=== PATIENT | female | born 1945 | race Caucasian/White ===

== ENCOUNTER 2017-01-15 07:39 | Day surgery (SDC) | payer MEDICARE, BC ==
[2017-01-15] MEDS ORDERED: Lactated Ringers 1,000 ML IV SCH (07:45)
[2017-01-15] MEDS ORDERED: Propofol 200 MG/20 ML SDV IV ONE (09:00)
[2017-01-15] MEDS ORDERED: Midazolam 1 MG/ML 2 ML SDV IV ONE (09:00)
[2017-01-15] MEDS ORDERED: Lidocaine 2% 100 MG/5 ML Syringe IVPUSH ONE (09:00)
--- NOTE | 2017-01-15 09:44 | PCM.OPNOTE ---
- General Post-Op/Procedure Note Date of Surgery/Procedure: 01/15/17 Operative Procedure(s): egd and c scope Findings: hiatal hernia, esophagitis gastritis diverticulosis internal hemorrhoids Pre Op Diagnosis: Fe def anemia Post-Op Diagnosis: hiatal hernia, esophagitis. gastritis. diverticulosis. internal hemorrhoids Anesthesia Technique: [facility] Primary Surgeon: Buck Laboy Anesthesia Provider: Elidia Harrison Pathology: stomach and distal esophagus Complications: None Condition: Good Free Text/Narrative:: see dictation [id number]
[2017-01-15 10:19] VITALS: BP 141/81
--- NOTE | 2017-01-15 15:28 | OR ---
DATE OF OPERATION: 01/15/2017 SURGEON: Buck Laboy MD PROCEDURE PERFORMED: Esophagogastroduodenoscopy with cold forceps biopsy and colonoscopy. PREOPERATIVE DIAGNOSIS: Iron deficiency anemia. POSTOPERATIVE DIAGNOSIS: Gastritis, hiatal hernia with esophagitis, sigmoid diverticulosis, and internal hemorrhoids. INDICATIONS FOR PROCEDURE: This is a 71-year-old white female, who is referred for iron deficiency anemia. She essentially has no GI complaints but she was offered and accepted an upper and lower endoscopy to rule out possible GI etiology for her anemia. DESCRIPTION OF PROCEDURE: After an excellent IV sedation was administered, the bite block was inserted. The flexible endoscope was passed without difficulty down the patient's esophagus into the stomach. The stomach was insufflated. The scope was passed through the pylorus to the second portion of duodenum and slowly withdrawn. The following findings were noted. Duodenum was unremarkable. Stomach demonstrated a hiatal hernia with approximately 1/3rd of the stomach in the chest. Marked gastritis, possible gastropathy the was noted in the area of the antrum and biopsies were taken. Distal esophagus demonstrated evidence suggestive of reflux esophagitis and this was biopsied as well. The stomach was deflated and the scope was removed. Our attention was then turned to the colon. Digital rectal exam was performed. No marked abnormality was noted. Flexible colonoscope was inserted and advanced to the cecum without difficulty. The following findings were noted. Ascending colon, unremarkable. Transverse colon, unremarkable. Descending colon, unremarkable. Sigmoid, mild diverticulosis. Rectum and anus unremarkable, except for some internal hemorrhoids which were noted on retroflex of the scope. The colon was deflated as the scope was removed. The patient tolerated the procedure well and was taken to recovery room in good condition. /[id number] /MODL
== END 2017-01-15 10:39 | disposition home or self-care (01) ==
LOC: FB.SDS 07:39
PROVIDERS: ATTEND Surgery
DX: K29.50 Unspecified chronic gastritis without bleeding (principal); K20.9 Esophagitis, unspecified; K44.9 Diaphragmatic hernia without obstruction or gangrene; K57.30 Diverticulosis of large intestine without perforation or abscess without bleeding; K64.8 Other hemorrhoids; F41.1 Generalized anxiety disorder; F33.0 Major depressive disorder, recurrent, mild; G47.33 Obstructive sleep apnea (adult) (pediatric); I10 Essential (primary) hypertension; Z88.8 Allergy status to other drugs, medicaments and biological substances; Z79.01 Long term (current) use of anticoagulants; Z79.899 Other long term (current) drug therapy; Z98.890 Other specified postprocedural states; Z87.891 Personal history of nicotine dependence
CPT/HCPCS: 00740; 43239; 45378; 88305; 88313; J2250; J2704; J7120

== ENCOUNTER 2018-10-20 13:28 | Emergency (ER) | payer MEDICARE, BC ==
[2018-10-20] MEDS ORDERED: Sodium Chloride 0.9% 10 ML Syringe FLUSH PRN (14:14)
--- NOTE | 2018-10-20 14:39 | EDM.PDOC ---
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 She states these are the symptoms that she has had in the past when she has had her pulmonary emboli. She also reports that 2 weeks ago she ran out of her Coumadin for 4 days and since that time she has been to get her INR back in the therapeutic range and it has consistently been subtherapeutic during this time. She has had no chest pain. She's had no palpitations. She's had no fever. She's had bilateral knee pain but this is chronic. She's had no leg swelling. She reports that the pain in her knee is about 6/10 on her right and a 3/10 on her left that this is chronic. The pain is a sharp and aching pain. She has had no hemoptysis. No nausea. No vomiting. She does feel very tired and fatigued. There are no other associated signs or symptoms. There are no other modifying factors. 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 - Related Data Allergies Allergy/AdvReac Type Severity Reaction Status Date / Time morphine AdvReac Vomiting Unverified 10/20/18 16:58 Home Meds: Home Meds ALPRAZolam [Xanax] 1 mg PO BEDTIME PRN 08/15/14 [History] Escitalopram [Lexapro] 10 mg PO DAILY 08/15/14 [History] Losartan/Hydrochlorothiazide [Hyzaar 50-12.5 Tablet] 1 tab PO DAILY 08/15/14 [ History] Acetaminophen [Pain Relief Extra Strength] 1,000 mg PO Q8H PRN 01/14/17 [History ] Ferrous Sulfate 324 mg PO DAILY 01/14/17 [History] Melatonin 5 mg PO BEDTIME 01/14/17 [History] Enoxaparin Sodium [Lovenox] 100 mg SQ BID #14 ml 10/20/18 [Rx] Warfarin Sodium 2.5 mg DAILY 10/20/18 [History] Past Medical History HEENT History: Reports: Cataract, Impaired Vision Cardiovascular History: Reports: Blood Clots/VTE/DVT, Hypertension Respiratory History: Reports: PE, Sleep Apnea, SOB Gastrointestinal History: Reports: Colon Polyp, Gastritis Genitourinary History: Reports: Renal Calculus Other Genitourinary History: had stents when had kidney stone in Jul 2018 VINE PRUNER History: Reports: Other (See Below) Other VINE PRUNER History: Musculoskeletal History: Reports: Osteoarthritis Neurological History: Reports: Concussion, Head Trauma Psychiatric History: Reports: Anxiety, Depression Endocrine/Metabolic History: Reports: Obesity/BMI 30+ Hematologic History: Reports: Anemia, Anticoagulation Therapy (On Coumadin), Blood Transfusion(s) - Infectious Disease History Infectious Disease History: Reports: Chicken Pox, Measles, Mumps - Past Surgical History GI Surgical History: Reports: Colonoscopy, EGD Female Surgical History: Reports: D&C, Endometrial Ablation, Lithotripsy/ESWL , Other (See Below) Other Female Surgeries/Procedures: hysteroscopy et polypectomy Musculoskeletal Surgical History: Reports: Arthroscopic Knee Other Musculoskeletal Surgeries/Procedures:: R knee scope Social & Family History - Tobacco Use Smoking Status *Q: Former Smoker (Quit in the 1960s.) Years of Tobacco use: 5 Used Tobacco, but Quit: Yes Month/Year Tobacco Last Used: jun - Caffeine Use Caffeine Use: Reports: Coffee - Alcohol Use Alcohol Use History: Yes Alcohol Use Frequency: Rarely - Living Situation & Occupation Living situation: Reports: ED ROS GENERAL - Review of Systems Review Of Systems: See Below Constitutional: Reports: Fatigue HEENT: Reports: No Symptoms Respiratory: Reports: Shortness of Breath, Cough (Particularly at bedtime) Cardiovascular: Reports: No Symptoms Endocrine: Reports: Fatigue GI/Abdominal: Reports: No Symptoms : Reports: No Symptoms Musculoskeletal: Reports: Joint Pain (Bilateral knee pain, chronic) Skin: Reports: No Symptoms Neurological: Reports: No Symptoms Hematologic/Lymphatic: Reports: Other (Chronically anticoagulated with Coumadin but has been subtherapeutic for about the past 2 weeks.) Immunologic: Reports: No Symptoms ED EXAM, GENERAL - Physical Exam Exam: See Below Exam Limited By: No Limitations General Appearance: Alert, No Apparent Distress, Obese Eye Exam: Bilateral Eye: EOMI, Normal Inspection, PERRL Ears: Normal External Exam, Hearing Grossly Normal Nose: Normal Inspection, Normal Mucosa Throat/Mouth: Normal Inspection, Normal Voice, No Airway Compromise Head: Atraumatic, Normocephalic Neck: Normal Inspection, Supple, Non-Tender, Full Range of Motion Respiratory/Chest: No Respiratory Distress, Lungs Clear, Normal Breath Sounds, No Accessory Muscle Use Cardiovascular: Normal Peripheral Pulses, Regular Rate, Rhythm, No JVD Peripheral Pulses: 2+: Radial (L), Radial (R) GI/Abdominal: Normal Bowel Sounds, Soft, Non-Tender, No Mass Back Exam: Normal Inspection Extremities: Normal Inspection, Normal Range of Motion, Non-Tender Neurological: Alert, CN II-XII Intact, Normal Cognition, No Motor/Sensory Deficits Skin Exam: Warm, Dry, Intact, Normal Color, No Rash EKG INTERPRETATION EKG Date: 10/20/18 Time: 14:38 Rhythm: NSR Rate (Beats/Min): 68 [place]: Normal P-Wave: Present QRS: Normal ST-T: Normal QT: Prolonged (Slight) Comparison: NA - No Prior EKG EKG Interpretation Comments: Normal sinus rhythm with a rate of 68. There was a normal axis. Slightly prolonged QTC. There were some PACs. No current of injury. No old EKG for comparison. Course - Vital Signs Last Recorded V/S: Last Vital Signs Temp 37.2 C 10/20/18 13:31 Pulse 73 10/20/18 13:31 Resp 20 10/20/18 13:31 BP 181/89 H 10/20/18 13:31 Pulse Ox 100 10/20/18 13:31 - Orders/Labs/Meds Orders: Active Orders 24 hr Category Date Time Status EKG Documentation Completion [RC] ASDIRECTED Care 10/20/18 14:14 Active Ang Chest [CT] Stat Exams 10/20/18 14:44 Taken Sodium Chloride 0.9% [Saline Flush] Med 10/20/18 14:14 Active 10 ml FLUSH ASDIRECTED PRN Peripheral IV Insertion Adult [OM.PC] Routine Oth 10/20/18 14:14 Ordered EKG 12 Lead [EK] Routine Ther 10/20/18 14:14 Ordered Medication Orders Sodium Chloride (Saline Flush) 10 ml FLUSH ASDIRECTED PRN PRN Reason: Keep Vein Open Labs: Laboratory Tests 10/20/18 10/20/18 10/20/18 Range/Units 13:40 13:40 13:40 WBC 8.0 (4.5-12.0) X10-3/uL RBC 4.31 (3.23-5.20) x10(6)uL Hgb 12.8 (11.5-15.5) g/dL Hct 38.3 (30.0-51.3) % MCV 89.0 (80-96) fL MCH 29.7 (27.7-33.6) pg MCHC 33.4 (32.2-35.4) g/dL RDW 13.6 (11.5-15.5) % Plt Count 260 (125-369) X10(3)uL MPV 7.7 (7.4-10.4) fL Neut % (Auto) 71.7 (46-82) % Lymph % (Auto) 20.1 (13-37) % [place] % (Auto) 6.8 (4-12) % Eos % (Auto) 1 (1.0-5.0) % Baso % (Auto) 0 (0-2) % Neut # (Auto) 5.8 (1.6-8.3) # Lymph # (Auto) 1.6 (0.6-5.0) # [place] # (Auto) 0.5 (0.0-1.3) # Eos # (Auto) 0.1 (0.0-0.8) # Baso # (Auto) 0.0 (0.0-0.2) # PT 10.4 (8.7-11.1) INR 1.07 (0.89-1.13) Sodium 139 (135-145) mmol/L Potassium 3.5 (3.5-5.3) mmol/L Chloride 104 (100-110) mmol/L Carbon Dioxide 28 (21-32) mmol/L BUN 11 (7-18) mg/dL Creatinine 0.9 (0.55-1.02) mg/dL Est Cr Clr Drug Dosing 39.39 mL/min Estimated GFR (MDRD) > 60 (>60) BUN/Creatinine Ratio 12.2 (9-20) Glucose 90 (80-116) mg/dL Calcium 8.7 (8.6-10.2) mg/dL Total Bilirubin 0.4 (0.1-1.3) mg/dL AST 14 (5-25) IU/L ALT 18 (12-36) U/L Alkaline Phosphatase 118 H (56-112) IU/L Troponin I (<0.017-0.056) ng/mL NT-Pro-B Natriuret Pep (<=125) pg/mL Total Protein 7.3 (6.0-8.0) g/dL Albumin 3.2 (3.2-4.6) g/dL Globulin 4.1 g/dL Albumin/Globulin Ratio 0.8 04/25/19 Range/Units 13:40 WBC (4.5-12.0) X10-3/uL RBC (3.23-5.20) x10(6)uL Hgb (11.5-15.5) g/dL Hct (30.0-51.3) % MCV (80-96) fL MCH (27.7-33.6) pg MCHC (32.2-35.4) g/dL RDW (11.5-15.5) % Plt Count (125-369) X10(3)uL MPV (7.4-10.4) fL Neut % (Auto) (46-82) % Lymph % (Auto) (13-37) % [place] % (Auto) (4-12) % Eos % (Auto) (1.0-5.0) % Baso % (Auto) (0-2) % Neut # (Auto) (1.6-8.3) # Lymph # (Auto) (0.6-5.0) # [place] # (Auto) (0.0-1.3) # Eos # (Auto) (0.0-0.8) # Baso # (Auto) (0.0-0.2) # PT (8.7-11.1) INR (0.89-1.13) Sodium (135-145) mmol/L Potassium (3.5-5.3) mmol/L Chloride (100-110) mmol/L Carbon Dioxide (21-32) mmol/L BUN (7-18) mg/dL Creatinine (0.55-1.02) mg/dL Est Cr Clr Drug Dosing mL/min Estimated GFR (MDRD) (>60) BUN/Creatinine Ratio (9-20) Glucose (80-116) mg/dL Calcium (8.6-10.2) mg/dL Total Bilirubin (0.1-1.3) mg/dL AST (5-25) IU/L ALT (12-36) U/L Alkaline Phosphatase (56-112) IU/L Troponin I < 0.017 L (<0.017-0.056) ng/mL NT-Pro-B Natriuret Pep 161 H (<=125) pg/mL Total Protein (6.0-8.0) g/dL Albumin (3.2-4.6) g/dL Globulin g/dL Albumin/Globulin Ratio Meds: Medications Generic Name Dose Route Start Last Admin Trade Name Freq PRN Reason Stop Dose Admin Sodium Chloride 10 ml 10/20/18 14:14 Saline Flush FLUSH ASDIRECTED PRN Keep Vein Open Discontinued Medications Generic Name Dose Route Start Last Admin Trade Name Freq PRN Reason Stop Dose Admin Enoxaparin Sodium 100 mg 10/20/18 17:25 Lovenox SUBCUT 10/20/18 17:26 ONETIME ONE Sodium Chloride 500 mls @ 999 mls/hr 10/20/18 14:43 10/20/18 16:32 Normal Saline IV 10/20/18 15:13 Not Given .BOLUS ONE Sodium Chloride 1,000 mls @ 999 mls/hr 10/20/18 16:20 10/20/18 16:20 Normal Saline IV 10/20/18 17:20 999 mls/hr .BOLUS ONE Administration Iopamidol 100 ml 10/20/18 15:09 10/20/18 15:15 Isovue-370 (76%) IV 10/20/18 15:10 85 ml ONETIME ONE Administration - Radiology Interpretation Free Text/Narrative:: CT angios of chest showed evidence of distal PEs on the right that may be chronic per the radiologist. He could not definitely determine chronic versus acute PE. - Re-Assessments/Exams Free Text/Narrative Re-Assessment/Exam: 10/20/18 17:29: The patient has had recurrent PEs and is on Coumadin for chronic anticoagulation. She has been subtherapeutic for about 2 weeks now and is supposed to be on lifelong anticoagulation for these recurrent PEs. The CT scan of the chest show evidence of PEs in the right distal long that were either chronic or acute. Nonetheless, she will need additional anticoagulation. I discussed the patient's case with Dr. Pal, merchandising consultant for Dr. Carrasco, and he recommended Eliquis as single therapy or the patient could continue on Coumadin with Lovenox bridging (as she has done in the past). I discussed these options with the patient as well as the findings on her CT, her EKG and her blood tests. Besides the evidence of PEs, all of the other tests were reassuringly normal. Specifically, she has no evidence of pneumonia, heart failure or cardiac issue this time. She would be in favor of continuing on Coumadin and taking the Lovenox as a bridge until her INR to become therapeutic again. Therefore, the patient will be given Lovenox 100 mg subcutaneous today and I will give her a prescription for 1 week's supply of the Lovenox. She is to call the Coumadin nurse tomorrow about her Coumadin dosing. She is also to follow-up with Dr. Carrasco. Departure - Departure Time of Disposition: 17:40 Disposition: Home, Self-Care 01 Condition: Good Clinical Impression: Recurrent pulmonary embolism, Subtherapeutic international normalized ratio ( INR) - Discharge Information Prescriptions: Enoxaparin Sodium [Lovenox] 100 mg SQ BID #14 ml Instructions: Pulmonary Embolism Referrals: Catherine Sage PA-C [Primary Care Provider] - Forms: ED Department Discharge Additional Instructions: Your INR was once again subtherapeutic at 1.07. Your other blood tests were normal. Your EKG showed no acute abnormality. There was no evidence of pneumonia on your CT scan. There is also no evidence of heart failure. The CT scan did show small pulmonary emboli in the distal arteries on the right side. I am placing you on Lovenox until your INR has become therapeutic again. You will need to call the Coumadin nurse tomorrow to get further instructions on your Coumadin dosing and you will need to follow-up with Dr. Carrasco by next week. Back to the emergency department for coughing of blood, chest pain, breathing, high fever or any other concerning sign or symptom. - My Orders Last 24 Hours: My Active Orders 10/20/18 14:14 EKG Documentation Completion [RC] ASDIRECTED Sodium Chloride 0.9% [Saline Flush] 10 ml FLUSH ASDIRECTED PRN Peripheral IV Insertion Adult [OM.PC] Routine EKG 12 Lead [EK] Routine 10/20/18 14:44 Ang Chest [CT] Stat - Assessment/Plan Last 24 Hours: My Active Orders 10/20/18 14:14 EKG Documentation Completion [RC] ASDIRECTED Sodium Chloride 0.9% [Saline Flush] 10 ml FLUSH ASDIRECTED PRN Peripheral IV Insertion Adult [OM.PC] Routine EKG 12 Lead [EK] Routine 10/20/18 14:44 Ang Chest [CT] Stat
[2018-10-20] MEDS ORDERED: Sodium Chloride 0.9% 500 ML IV ONE (14:43)
[2018-10-20] MEDS ORDERED: Iopamidol 755 Mg/ML 100 ML Bottle IV ONE (15:09)
[2018-10-20] MEDS ORDERED: Sodium Chloride 0.9% 1,000 ML IV ONE (16:20)
[2018-10-20] MEDS ORDERED: Enoxaparin 100 MG/1 ML Syringe SUBCUT ONE (17:25)
[2018-10-20 17:44] VITALS: BP 169/86
--- NOTE | 2018-10-21 10:20 | CT ---
INDICATION: Shortness of breath, history of previous PE, subtherapeutic INR. COMPUTERIZED TOMOGRAPHY ANGIOGRAPHY OF THE CHEST WITH CONTRAST: Spiral 2.5 mm axial sections were obtained through the chest with 85 mL Isovue 370 at 3 mL/ second with sagittal and coronal reconstructions, 10/20/18, and compared with [facility] CTA. Total exam DLP = 956.63 mGy-cm. A definite active infiltrate or effusion was not identified. The heart did not appear grossly enlarged. No pericardial effusion was seen. No gross abnormality is noted in the upper abdomen included on the examination. The right and left main pulmonary artery emboli that were present on the previous study of 2012 are no longer present. There is residual or new pulmonary embolus in a secondary - tertiary right lower lobe pulmonary artery. The appearance of the right lower lobe embolus is somewhat chronic in appearance and could be a residual from the previous thrombus, rather than new acute pulmonary embolus. No other definite pulmonary emboli were identified on the current study. IMPRESSION: The only significant residual embolus seen is in a secondary and tertiary right lower lobe pulmonary artery. This could represent a chronic finding, rather than an acute pulmonary embolus - correlate clinically. Report was called to Dr. Rai at 1702 hours on 10/20/18. GAVIN
== END 2018-10-20 17:50 | disposition home or self-care (01) ==
LOC: FB.ED 13:28
DX: I26.99 Other pulmonary embolism without acute cor pulmonale (principal); R79.1 Abnormal coagulation profile; Z87.891 Personal history of nicotine dependence; I10 Essential (primary) hypertension; F41.9 Anxiety disorder, unspecified; F32.9 Major depressive disorder, single episode, unspecified; Z88.5 Allergy status to narcotic agent; Z79.01 Long term (current) use of anticoagulants
CPT/HCPCS: 36415; 71275; 80053; 83880; 84484; 85025; 85610; 93005; 96360; 96372; 99285-25; J1650; J7030; Q9967

== ENCOUNTER 2019-08-05 10:41 | Emergency (ER) | payer MEDICARE, BC ==
--- NOTE | 2019-08-05 11:15 | EDM.PDOC ---
ED HPI GENERAL MEDICAL PROBLEM - General Chief Complaint: General Stated Complaint: TOOTH PAIN Time Seen by Provider: 08/05/19 11:10 Source of Information: Reports: Patient History Limitations: Reports: No Limitations - History of Present Illness INITIAL COMMENTS - FREE TEXT/NARRATIVE: 73-year-old female who reports onset of right lower dental pain on night, 08/03/2019, that has progressively worsened with time. She also has developed redness and swelling below the tooth and the gum and also some pain that goes into her chin as well. She reports the pain as a sharp pain and it is worse with palpation of the area and when air hits the tooth. She rates the pain as a 9/10. She is having no trouble swallowing. There is no swelling under her tongue. No trouble breathing. No fevers or chills. She reports the pain is so severe at times that she "dry heaves". There has been no recent work on the tooth that his having pain but she did have work on this tooth approximately one year or so ago. She has no swelling under her jaw as well. There are no other associated signs or symptoms. There are no other modifying factors. Onset: Other (08/03/2019) Duration: Getting Worse Location: Reports: Face (Left lower tooth with chin pain) Quality: Reports: Ache, Sharp, Throbbing Severity: Moderate (to veer) Improves with: Reports: None Worsens with: Reports: Eating, Other (Palpation. 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: Reports: Acetaminophen Lower Oral/Mouth Pain Score (Numeric/FACES): 9 - Related Data Allergies Allergy/AdvReac Type Severity Reaction Status Date / Time morphine AdvReac Vomiting Unverified 10/20/18 21:17 Home Meds: Home Meds ALPRAZolam [Xanax] 1 mg PO BEDTIME PRN 08/15/14 [History] Escitalopram [Lexapro] 10 mg PO DAILY 08/15/14 [History] Losartan/Hydrochlorothiazide [Hyzaar 50-12.5 Tablet] 1 tab PO DAILY 08/15/14 [ History] Acetaminophen [Pain Relief Extra Strength] 1,000 mg PO Q8H PRN 01/14/17 [History ] Ferrous Sulfate 324 mg PO DAILY 01/14/17 [History] Melatonin 5 mg PO BEDTIME 01/14/17 [History] Warfarin Sodium 2.5 mg DAILY 10/20/18 [History] Amoxicillin/Potassium Clav [Augmentin 875-125 Tablet] 1 each PO BID 10 Days #20 tablet 08/05/19 [Rx] Hydrocodone/Acetaminophen [[place] 5-325 Tablet] 1 - 2 tab PO Q6H PRN #12 tablet 08/05/19 [Rx] Ondansetron [Zofran ODT] 4 mg PO Q6H PRN #10 tab.dis 08/05/19 [Rx] Past Medical History HEENT History: Reports: Cataract, Impaired Vision Cardiovascular History: Reports: Blood Clots/VTE/DVT, Hypertension Respiratory History: Reports: PE, Sleep Apnea Gastrointestinal History: Reports: Colon Polyp, Gastritis Genitourinary History: Reports: Renal Calculus Other Genitourinary History: had stents when had kidney stone in Jul 2018 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 (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: Musculoskeletal History: Reports: Osteoarthritis Neurological History: Reports: Concussion, Head Trauma Psychiatric History: Reports: Anxiety, Depression Endocrine/Metabolic History: Reports: Obesity/BMI 30+ Hematologic History: Reports: Anemia, Anticoagulation Therapy (On Coumadin), Blood Transfusion(s) - Infectious Disease History Infectious Disease History: Reports: Chicken Pox, Measles, Mumps - Past Surgical History GI Surgical History: Reports: Colonoscopy, EGD Female Surgical History: Reports: D&C, Endometrial Ablation, Lithotripsy/ESWL , Other (See Below) Other Female Surgeries/Procedures: hysteroscopy with polypectomy Musculoskeletal Surgical History: Reports: Arthroscopic Knee Other Musculoskeletal Surgeries/Procedures:: R knee scope Social & Family History - Tobacco Use Smoking Status *Q: Never Smoker - Caffeine Use Caffeine Use: Reports: Coffee - Alcohol Use Alcohol Use History: Yes Alcohol Use Frequency: Rarely - Living Situation & Occupation Living situation: Reports: Occupation: Retired ED ROS GENERAL - Review of Systems Review Of Systems: See Below Constitutional: Reports: No Symptoms HEENT: Reports: Dental Pain, Other (Chin pain and swelling) Respiratory: Reports: No Symptoms Cardiovascular: Reports: No Symptoms GI/Abdominal: Reports: Nausea (With the pain.) : Reports: No Symptoms Musculoskeletal: Reports: No Symptoms Skin: Reports: Erythema (Mild on chin) Neurological: Reports: No Symptoms Hematologic/Lymphatic: Reports: No Symptoms Immunologic: Reports: No Symptoms ED EXAM, GENERAL - Physical Exam Exam: See Below Exam Limited By: No Limitations General Appearance: Alert, WD/WN, Moderate Distress (Secondary to pain. She does appear nontoxic.) Eye Exam: Bilateral Eye: EOMI, Normal Inspection Ears: Normal External Exam, Hearing Grossly Normal Ear Exam: Bilateral Ear: Auricle Normal Nose: Normal Inspection, Normal Mucosa, No Blood Throat/Mouth: Normal Voice, No Airway Compromise, Inflammation (And erythema around right lower tooth.) Head: Atraumatic, Normocephalic, Facial Swelling (Chin area) Neck: Normal Inspection, Supple, Non-Tender, Full Range of Motion, Other (No submental tenderness or swelling) Respiratory/Chest: No Respiratory Distress, Lungs Clear, Normal Breath Sounds, No Accessory Muscle Use, Chest Non-Tender Cardiovascular: Normal Peripheral Pulses, Regular Rate, Rhythm, No Murmur Peripheral Pulses: 2+: Radial (L), Radial (R) GI/Abdominal: Normal Bowel Sounds, Soft, Non-Tender, No Mass Back Exam: Normal Inspection, Full Range of Motion Extremities: Normal Inspection, Normal Range of Motion, Non-Tender, Normal Capillary Refill Neurological: Alert, Oriented, CN II-XII Intact, Normal Cognition, No Motor/ Sensory Deficits Skin Exam: Warm, Dry, Intact, No Rash, Erythema (On chin as above, mild.) Course - Vital Signs Last Recorded V/S: Last Vital Signs Temp 36.8 C 08/05/19 11:05 Pulse 91 08/05/19 12:24 Resp 18 08/05/19 12:24 BP 145/70 H 08/05/19 12:24 Pulse Ox 93 L 08/05/19 12:24 - Re-Assessments/Exams Free Text/Narrative Re-Assessment/Exam: 08/05/19 11:20: Patient with right lower dental infection/dental abscess with some mild chin cellulitis. I have placed the patient on Augmentin 875 twice a day for 10 days. I have also given her a prescription of hydrocodone 5/325 for her pain and Zofran for any nausea she may have. She is to see a dentist this coming week. Precautions and reasons for return to the emergency department were discussed with the patient and her prior to her discharge. Departure - Departure Time of Disposition: 11:30 Disposition: Home, Self-Care 01 Condition: Good Clinical Impression: Dental abscess, Cellulitis of chin - Discharge Information Prescriptions: Amoxicillin/Potassium Clav [Augmentin 875-125 Tablet] 1 each PO BID 10 Days #20 tablet Hydrocodone/Acetaminophen [[place] 5-325 Tablet] 1 - 2 tab PO Q6H PRN #12 tablet PRN Reason: Moderate to severe pain Ondansetron [Zofran ODT] 4 mg PO Q6H PRN #10 tab.dis PRN Reason: Nausea/Vomiting Instructions: Dental Abscess, [id number], Cellulitis, Adult, [id number] Referrals: Fernando Carrasco MD [Primary Care Provider] - Forms: ED Department Discharge Additional Instructions: You have an infection or dental abscess of your right lower tooth. There is also a mild skin infection of your chin called a cellulitis that is associated with this dental infection. You should drink plenty of fluids. Medication as prescribed (Augmentin 875 mg, hydrocodone 5/325, Zofran 4 mg ODT). You should take probiotics or eat yogurt daily while you are on the antibiotics. You will need to check your INR in 2 days and follow-up with your Coumadin clinic nurse as antibiotics will make your INR increase sometimes. You will need to follow- up with the dentist this coming week. Back to the emergency department for trouble swallowing, trouble breathing, high fever or any other concerning sign or symptom. Sepsis Event Note - Evaluation Sepsis Screening Result: No Definite Risk - Focused Exam Vital Signs: Vital Signs Temp Pulse Resp BP Pulse Ox 08/05/19 12:24 91 18 145/70 H 93 L 08/05/19 11:05 36.8 C 95 18 100/80 93 L Date Exam was Performed: 08/05/19 Time Exam was Performed: 12:29
== END 2019-08-05 12:06 | disposition home or self-care (01) ==
LOC: FB.ED 10:41
CPT/HCPCS: 99282; 99283

== ENCOUNTER 2020-10-22 16:40 | Emergency (ER) | payer MEDICARE, BC ==
[2020-10-22] MEDS ORDERED: Sodium Chloride 0.9% 10 ML Syringe FLUSH PRN (17:22)
[2020-10-22] MEDS ORDERED: Ondansetron 4 MG/2 ML SDV IVPUSH STA ×2 (17:24→21:50)
[2020-10-22] MEDS ORDERED: Sodium Chloride 0.9% 1,000 ML IV SCH ×2 (17:30→21:00)
[2020-10-22] MEDS ORDERED: Ketorolac 30 MG/ML SDV IVPUSH ONE (17:53)
--- NOTE | 2020-10-22 18:11 | EDM.PDOC ---
ED HPI GENERAL MEDICAL PROBLEM - General Stated Complaint: LEFT ABDOMINAL PAIN,DRY HEAVING, DIZZY Time Seen by Provider: 10/22/20 16:50 Source of Information: Reports: Patient, Family History Limitations: Reports: No Limitations - History of Present Illness INITIAL COMMENTS - FREE TEXT/NARRATIVE: Patient presented to the ED because of abdominal pain over the LLQ which started last night. The pain is dull and cramping, 6/10, worse with movements. There is dry heaving but no vomiting. She noticed that she didn't have any bowel movement for 2 days, normally she have 3-4 bowel movements a day. There is no fever, chills, cough/cold but she has been having clear nasal discharge. Left Lower Abdomen Pain Score (Numeric/FACES): 7 - Related Data Allergies Allergy/AdvReac Type Severity Reaction Status Date / Time morphine AdvReac Vomiting Verified 10/22/20 17:33 Home Meds: Home Meds ALPRAZolam [Xanax] 1 mg PO BEDTIME PRN 08/15/14 [History] Escitalopram [Lexapro] 10 mg PO DAILY 08/15/14 [History] Losartan/Hydrochlorothiazide [Hyzaar 50-12.5 Tablet] 1 tab PO DAILY 08/15/14 [History] Acetaminophen [Pain Relief Extra Strength] 1,000 mg PO Q8H PRN 01/14/17 [History] Melatonin 5 mg PO BEDTIME 01/14/17 [History] Warfarin Sodium 2.5 mg DAILY 10/20/18 [History] Past Medical History HEENT History: Reports: Cataract, Impaired Vision Cardiovascular History: Reports: Blood Clots/VTE/DVT, Hypertension Respiratory History: Reports: PE, Sleep Apnea Gastrointestinal History: Reports: Colon Polyp, Gastritis Genitourinary History: Reports: Renal Calculus Other Genitourinary History: had stents when had kidney stone in Jul 2018 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 ADJUSTER History: Musculoskeletal History: Reports: Osteoarthritis Neurological History: Reports: Concussion, Head Trauma Psychiatric History: Reports: Anxiety, Depression Endocrine/Metabolic History: Reports: Obesity/BMI 30+ Hematologic History: Reports: Anemia, Anticoagulation Therapy (On Coumadin), Blood Transfusion(s) Immunologic History: Reports: None Oncologic (Cancer) History: Reports: None Dermatologic History: Reports: None - Infectious Disease History Infectious Disease History: Reports: Chicken Pox, Measles, Mumps - Past Surgical History GI Surgical History: Reports: Colonoscopy, EGD Female Surgical History: Reports: D&C, Endometrial Ablation, Lithotripsy/ESWL, Other (See Below) Other Female Surgeries/Procedures: hysteroscopy with polypectomy Musculoskeletal Surgical History: Reports: Arthroscopic Knee Other Musculoskeletal Surgeries/Procedures:: R knee scope Social & Family History - Family History Family Medical History: No Pertinent Family History - Caffeine Use Caffeine Use: Reports: Coffee - Living Situation & Occupation Living situation: Reports: Occupation: Retired ED ROS GENERAL - Review of Systems Review Of Systems: See Below Constitutional: Reports: No Symptoms HEENT: Reports: Rhinitis Respiratory: Reports: No Symptoms Cardiovascular: Reports: No Symptoms Endocrine: Reports: No Symptoms GI/Abdominal: Reports: Abdominal Pain, Nausea : Reports: No Symptoms Musculoskeletal: Reports: No Symptoms Skin: Reports: No Symptoms Neurological: Reports: No Symptoms Psychiatric: Reports: No Symptoms ED EXAM, GI/ABD - Physical Exam Exam: See Below Exam Limited By: No Limitations General Appearance: Alert, No Apparent Distress Ears: Normal External Exam, Normal Canal Nose: Normal Inspection, Normal Mucosa, No Blood Throat/Mouth: Normal Inspection Head: Atraumatic, Normocephalic Neck: Normal Inspection, Supple, Non-Tender, Full Range of Motion Respiratory/Chest: No Respiratory Distress, Lungs Clear, Normal Breath Sounds, No Accessory Muscle Use, Chest Non-Tender Cardiovascular: Normal Peripheral Pulses, Regular Rate, Rhythm, No Edema, No Gallop, No JVD, No Murmur, No Rub GI/Abdominal Exam: Normal Bowel Sounds, Soft, No Organomegaly, No Distention, No Abnormal Bruit, No Mass, Other (tenderness over the LLQ and suprapubic area) Back Exam: Normal Inspection, Full Range of Motion Extremities: Normal Inspection, Normal Range of Motion Course - Vital Signs Text/Narrative:: Lab and CT result was discussed with patient and her NS 1 L bolus NS @ 125 ml/hr Zofran 4 mg IV x2 doses Morphine 2 mg IV x1 dose Toradol 15 mg IV x1 Klor con 20 meq, 2 po x1 Code Status: Full Code Covid test:negative Surgery consult was done with Dr Ronnie Hedrick and Dr Andrea of [facility] who recommended for patient to be transferred to [facility] for further evaluation but [place] is full and can only take her the following day at noon. I did talked to Jeanette and she agreed fo transfer to [facility] instead. Last Recorded V/S: Last Vital Signs Temp 36.5 C 10/22/20 20:40 Pulse 87 10/22/20 20:40 Resp 18 10/22/20 20:40 BP 159/78 H 10/22/20 20:40 Pulse Ox 97 10/22/20 20:40 - Orders/Labs/Meds Orders: Active Orders 24 hr Category Date Time Status Abdomen Pelvis w Cont [CT] Stat Exams 10/22/20 17:25 Taken Sodium Chloride 0.9% @ 125 MLS/HR (1000ml) Med 10/22/20 21:00 Ordered Sodium Chloride 0.9% [Normal Saline] 1,000 ml IV ASDIRECTED Sodium Chloride 0.9% [Normal Saline] 1,000 ml Med 10/22/20 17:30 Active IV ASDIRECTED Sodium Chloride 0.9% [Saline Flush] Med 10/22/20 17:22 Active 10 ml FLUSH ASDIRECTED PRN Saline Lock Insert [OM.PC] Routine Oth 10/22/20 17:22 Ordered Medication Orders Sodium Chloride (Normal Saline) 1,000 mls @ 999 mls/hr IV ASDIRECTED OLIVE Last Admin: 10/22/20 17:38 Dose: 999 mls/hr Documented by: [email or web address] Sodium Chloride (Normal Saline) 1,000 mls @ 125 mls/hr IV ASDIRECTED OLIVE Last Admin: 10/22/20 21:00 Dose: 125 mls/hr Documented by: Sodium Chloride (Sodium Chloride 0.9% 10 Ml Syringe) 10 ml FLUSH ASDIRECTED PRN PRN Reason: Keep Vein Open Labs: Laboratory Tests 10/22/20 10/22/20 10/22/20 Range/Units 17:30 17:30 17:30 WBC 15.3 H (3.0-10.3) x10-3/uL RBC 4.79 (3.60-5.20) x10(6)uL Hgb 14.1 (11.4-15.5) g/dL Hct 43.0 (34.2-48.2) % MCV 89.8 (76.7-100.5) fL MCH 29.5 (23.9-33.9) pg MCHC 32.9 (31.9-34.8) g/dL RDW 14.2 (12.3-16.5) % Plt Count 306 (151-488) x10(3)uL MPV 7.7 (7.1-12.4) fL Add Manual Diff Yes Neutrophils % (Manual) 90 H (46-82) % Lymphocytes % (Manual) 6 L (13-37) % Monocytes % (Manual) 4 (4-12) % PT 26.4 H (9.0-11.1) sec INR 2.60 H (1.00-1.24) Sodium 138 (135-145) mmol/L Potassium 3.4 L (3.5-5.3) mmol/L Chloride 99 L D (100-110) mmol/L Carbon Dioxide 26 (21-32) mmol/L BUN 11 (7-18) mg/dL Creatinine 1.0 (0.55-1.02) mg/dL Est Cr Clr Drug Dosing 34.38 mL/min Estimated GFR (MDRD) 54 L (>60) BUN/Creatinine Ratio 11.0 (9-20) Glucose 174 H D (80-116) mg/dL Calcium 9.2 (8.6-10.2) mg/dL Total Bilirubin 0.6 (0.1-1.3) mg/dL AST 18 D (5-25) IU/L ALT 22 D (12-36) U/L Alkaline Phosphatase 95 (56-112) IU/L Total Protein 8.2 H (6.0-8.0) g/dL Albumin 3.5 (3.2-4.6) g/dL Globulin 4.7 g/dL Albumin/Globulin Ratio 0.7 Amylase 27 (25-115) U/L Lipase (73-393) U/L Urine Color (YELLOW) Urine Appearance (CLEAR) Urine pH (5.0-6.5) Ur Specific [place] (1.010-1.025) Urine Protein (NEGATIVE) mg/dL Urine Glucose (UA) (NORMAL) mg/dL Urine Ketones (NEGATIVE) mg/dL Urine Occult Blood (NEGATIVE) Urine Nitrite (NEGATIVE) Urine Bilirubin (NEGATIVE) Urine Urobilinogen (NEGATIVE) mg/dL Ur Leukocyte Esterase (NEGATIVE) Urine RBC (0-5) Urine WBC (0-5) Ur Squamous Epith Cells (NS,R,O) Urine Bacteria (NS) SARS-CoV-2 RNA (ASAEL) (NEGATIVE) 10/22/20 10/22/20 10/22/20 Range/Units 17:30 18:10 20:45 WBC (3.0-10.3) x10-3/uL RBC (3.60-5.20) x10(6)uL Hgb (11.4-15.5) g/dL Hct (34.2-48.2) % MCV (76.7-100.5) fL MCH (23.9-33.9) pg MCHC (31.9-34.8) g/dL RDW (12.3-16.5) % Plt Count (151-488) x10(3)uL MPV (7.1-12.4) fL Add Manual Diff Neutrophils % (Manual) (46-82) % Lymphocytes % (Manual) (13-37) % Monocytes % (Manual) (4-12) % PT (9.0-11.1) sec INR (1.00-1.24) Sodium (135-145) mmol/L Potassium (3.5-5.3) mmol/L Chloride (100-110) mmol/L Carbon Dioxide (21-32) mmol/L BUN (7-18) mg/dL Creatinine (0.55-1.02) mg/dL Est Cr Clr Drug Dosing mL/min Estimated GFR (MDRD) (>60) BUN/Creatinine Ratio (9-20) Glucose (80-116) mg/dL Calcium (8.6-10.2) mg/dL Total Bilirubin (0.1-1.3) mg/dL AST (5-25) IU/L ALT (12-36) U/L Alkaline Phosphatase (56-112) IU/L Total Protein (6.0-8.0) g/dL Albumin (3.2-4.6) g/dL Globulin g/dL Albumin/Globulin Ratio Amylase (25-115) U/L Lipase 97 (73-393) U/L Urine Color Yellow (YELLOW) Urine Appearance Clear (CLEAR) Urine pH 7.0 H (5.0-6.5) Ur Specific [place] 1.010 (1.010-1.025) Urine Protein 30 H (NEGATIVE) mg/dL Urine Glucose (UA) Normal (NORMAL) mg/dL Urine Ketones 15 H (NEGATIVE) mg/dL Urine Occult Blood Trace (NEGATIVE) Urine Nitrite Negative (NEGATIVE) Urine Bilirubin Negative (NEGATIVE) Urine Urobilinogen Normal (NEGATIVE) mg/dL Ur Leukocyte Esterase Negative (NEGATIVE) Urine RBC 0-5 (0-5) Urine WBC 0-5 (0-5) Ur Squamous Epith Cells Few H (NS,R,O) Urine Bacteria Few H (NS) SARS-CoV-2 RNA (ASAEL) Negative (NEGATIVE) Meds: Medications Generic Name Dose Route Start Last Admin Trade Name Freq PRN Reason Stop Dose Admin Sodium Chloride 1,000 mls @ 999 mls/hr 10/22/20 17:30 10/22/20 17:38 Normal Saline IV 999 mls/hr ASDIRECTED OLIVE Administration Sodium Chloride 1,000 mls @ 125 mls/hr 10/22/20 21:00 10/22/20 21:00 Normal Saline IV 125 mls/hr ASDIRECTED OLIVE Administration Sodium Chloride 10 ml 10/22/20 17:22 Sodium Chloride 0.9% 10 Ml Syringe FLUSH ASDIRECTED PRN Keep Vein Open Discontinued Medications Generic Name Dose Route Start Last Admin Trade Name Freq PRN Reason Stop Dose Admin Iopamidol 150 ml 10/22/20 18:19 10/22/20 18:35 Iopamidol 755 Mg/Ml 150 Ml Bottle IV 10/22/20 18:20 150 ml ONETIME ONE Administration Ketorolac Tromethamine 15 mg 10/22/20 17:53 10/22/20 17:59 Ketorolac 30 Mg/Ml Sdv IVPUSH 10/22/20 17:54 15 mg ONETIME ONE Administration Ondansetron HCl 4 mg 10/22/20 17:24 10/22/20 17:38 Ondansetron 4 Mg/2 Ml Sdv IVPUSH 10/22/20 17:25 4 mg NOW STA Administration Potassium Chloride 40 meq 10/22/20 18:36 10/22/20 18:44 Potassium Chloride 20 Meq Tab.Er PO 10/22/20 18:37 40 meq NOW STA Administration Departure - Departure Time of Disposition: 20:35 Disposition: DC/Tfer to Acute Hospital 02 Condition: Good Clinical Impression: Abdominal pain, Hypokalemia - Discharge Information Referrals: Fernando Carrasco MD [Primary Care Provider] - Sepsis Event Note (ED) - Evaluation Sepsis Screening Result: No Definite Risk - Focused Exam Vital Signs: Vital Signs Temp Pulse Pulse Resp BP BP Pulse Ox 10/22/20 20:40 36.5 C 87 18 159/78 H 97 10/22/20 16:40 36.7 C 102 H 18 124/82 97 - My Orders Last 24 Hours: My Active Orders 10/22/20 17:22 Sodium Chloride 0.9% [Saline Flush] 10 ml FLUSH ASDIRECTED PRN Saline Lock Insert [OM.PC] Routine 10/22/20 17:25 Abdomen Pelvis w Cont [CT] Stat 10/22/20 17:30 Sodium Chloride 0.9% [Normal Saline] 1,000 ml IV ASDIRECTED 10/22/20 21:00 Sodium Chloride 0.9% @ 125 MLS/HR (1000ml) Sodium Chloride 0.9% [Normal Saline] 1,000 ml IV ASDIRECTED - Assessment/Plan Last 24 Hours: My Active Orders 10/22/20 17:22 Sodium Chloride 0.9% [Saline Flush] 10 ml FLUSH ASDIRECTED PRN Saline Lock Insert [OM.PC] Routine 10/22/20 17:25 Abdomen Pelvis w Cont [CT] Stat 10/22/20 17:30 Sodium Chloride 0.9% [Normal Saline] 1,000 ml IV ASDIRECTED 10/22/20 21:00 Sodium Chloride 0.9% @ 125 MLS/HR (1000ml) Sodium Chloride 0.9% [Normal Saline] 1,000 ml IV ASDIRECTED
[2020-10-22] MEDS ORDERED: Iopamidol 755 MG/ML 150 ML Bottle IV ONE (18:19)
[2020-10-22] MEDS ORDERED: Potassium Chloride 20 MEQ Tab.ER PO STA (18:36)
[2020-10-22 21:10] VITALS: BP 159/78; PULSE 87
[2020-10-22] MEDS ORDERED: Morphine 2 MG/ML SYRINGE IVPUSH STA (21:50)
--- NOTE | 2020-10-22 23:48 | CONS ---
DATE OF CONSULTATION: 10/22/2020 HISTORY OF PRESENT ILLNESS: This 75-year-old female is seen in the emergency room for evaluation of abdominal pain. This patient presented to the emergency room after approximately a day history of upper and left-sided abdominal pain. This began yesterday evening, persisted through the night and has intensified through the day. It has been associated with some nausea and dry heaves. She has also noticed that her bowel function has stopped and she has also not passed any flatus today. She has a history of multiple loose stools a day as her normal bowel pattern, but this has now changed rather abruptly over the last 1 to 3 days. She was able to take her medications today, but has not been able to eat very much. Currently, she says the pain persists. It is worse when she lies down and is exacerbated with movement. The patient had diagnostic studies performed including a CT scan of the abdomen, which significantly showed an abrupt point of obstruction in the mid left colon. There is dilation of the proximal and transverse colon with complete decompression of the distal colon at this point. There was no other surrounding inflammatory changes, although some diverticulosis was seen during the exam. The possibility of a mass in the colon is noted on the exam. The patient has had prior colon evaluation including a colonoscopy in December of 2016. This was reported as showing diverticulosis in the sigmoid region. Additional diagnostic studies upon evaluation here tonight include an elevated serum white blood cell count of 15,300 with 90% neutrophils. Her INR is elevated at 2.6. Potassium slightly low at 3.4. Liver function tests are normal. PAST MEDICAL HISTORY: Includes a prior diagnosis of pulmonary embolism x2, and for this, she is anticoagulated on Coumadin. She also takes Hyzaar for hypertension, Xanax, Lexapro, and melatonin. She notes an allergic reaction of vomiting to morphine. She says her only previous abdominal surgery was removal of a small uterine tumor. SYSTEM REVIEW: The patient notes that she has not had any recent symptoms of cough, shortness of breath, change in taste or smell. She does not note of any history of COVID-19 infection. No chest pain or palpitations. No shortness of breath. Her appetite is generally good. Her weight has been stable. She has noted as previously mentioned 2- to 3-year history of multiple loose stools a day with only a very rare semiformed stool. PHYSICAL EXAMINATION: VITAL SIGNS: Temperature is 98.1, pulse 102, blood pressure is 124/82, weight is 320 pounds. GENERAL: The patient is alert, adult female. She is currently in no acute distress. HEENT: Head is normocephalic. There is no scleral icterus. I do not feel any cervical lymphadenopathy. HEART: Regular without murmur. LUNGS: Clear. Breath sounds are equal. There is no wheezing. She has no CVA or spine tenderness to percussion. ABDOMEN: Rounded. Her upper abdomen appears distended, and there is tenderness to direct palpation in the upper and left abdomen with percussion tenderness noted in the left abdomen. I do not feel any definite mass. Her right abdomen is nontender. EXTREMITIES: Show no calf tenderness. IMPRESSION: 1. Descending colon obstruction. 2. History of multiple pulmonary emboli, on chronic anticoagulation. 3. Obesity. 4. Hypertension. RECOMMENDATIONS: Advised that patient be transferred to a tertiary care center for definitive care of her colon obstruction. Surgery possibly on an urgent basis may be needed to relieve this obstruction, and she will benefit from having specialized care at the tertiary care center. /[id number] SIMIN/LILLY
== END 2020-10-22 22:48 ==
LOC: FB.ED 16:40
DX: R10.32 Left lower quadrant pain (principal); E87.6 Hypokalemia; I10 Essential (primary) hypertension; E66.9 Obesity, unspecified; Z68.44 Body mass index [BMI] 60.0-69.9, adult; Z20.822 Contact with and (suspected) exposure to COVID-19; Z86.718 Personal history of other venous thrombosis and embolism; Z86.711 Personal history of pulmonary embolism; Z88.5 Allergy status to narcotic agent; Z79.899 Other long term (current) drug therapy
CPT/HCPCS: 36415; 74177; 80053; 81001; 82150; 83690; 85025; 85610; 96374; 96375; 96376; 99285-25; A9270-GY; J1885; J2270; J2405; J7030; Q9967; U0002

== ENCOUNTER 2020-11-17 15:38 | Emergency (ER) | payer MEDICARE, BC ==
--- NOTE | 2020-11-17 16:07 | EDM.PDOC ---
ED HPI GENERAL MEDICAL PROBLEM - General Chief Complaint: Gastrointestinal Problem Time Seen by Provider: 11/17/20 16:00 Source of Information: Reports: Patient History Limitations: Reports: No Limitations - History of Present Illness INITIAL COMMENTS - FREE TEXT/NARRATIVE: 75-year-old female who reports had diverticular abscess with perforation that required surgery at [facility] with colectomy and colostomy in 2020 and she had been doing well with normal eating and drinking and then Wednesday had some mild pain in her upper abdomen and then noted that her colostomy was somewhat full and noted that she had put a large amount out from her colostomy that was liquid. It was no blood in it. But following this, her pain seemed to go away and she felt well. This morning however she noted that she had had no output from her ostomy and that continued and she noticed that there was some hard feeling around the ostomy and and then she had emesis that was somewhat feculent and it was a large amount. After this she felt improved and had no further pain. She states that she has had no more vomiting since then but she has had continued pain that she would rated as a 3/10. There are intermittent waves of pain that are cramping sharp and these seem to come and go and are associated with nausea but no vomiting. Has had no output from her ostomy, not even air. She denies any fevers or chills. She has had no cough or difficulty breathing. He has been urinating normally. No dysuria or hematuria. He has had oral intake today but it has been decreased and it does seem to make her symptoms somewhat worse. There are no other associated signs or symptoms. There are no other modifying factors. 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: Other (see below) (Nothing.) - Related Data Allergies Allergy/AdvReac Type Severity Reaction Status Date / Time morphine AdvReac Vomiting Verified 10/22/20 17:33 Home Meds: Home Meds ALPRAZolam [Xanax] 1 mg PO BEDTIME PRN 08/15/14 [History] Escitalopram [Lexapro] 10 mg PO DAILY 08/15/14 [History] Losartan/Hydrochlorothiazide [Hyzaar 50-12.5 Tablet] 1 tab PO DAILY 08/15/14 [History] Acetaminophen [Pain Relief Extra Strength] 1,000 mg PO Q8H PRN 01/14/17 [Histo ry] Melatonin 5 mg PO BEDTIME 01/14/17 [History] Warfarin Sodium 2.5 mg PO DAILY 10/20/18 [History] Potassium Chloride 10 mg PO TID 11/17/20 [History] Past Medical History HEENT History: Reports: Cataract, Impaired Vision Cardiovascular History: Reports: Blood Clots/VTE/DVT, Hypertension Respiratory History: Reports: PE, Sleep Apnea Gastrointestinal History: Reports: Colon Polyp, Gastritis Genitourinary History: Reports: Renal Calculus Other Genitourinary History: had stents when had kidney stone in Jul 2018 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: Musculoskeletal History: Reports: Osteoarthritis Neurological History: Reports: Concussion, Head Trauma Psychiatric History: Reports: Anxiety, Depression Endocrine/Metabolic History: Reports: Obesity/BMI 30+ Hematologic History: Reports: Anemia, Anticoagulation Therapy, Blood Transfusion(s) - Infectious Disease History Infectious Disease History: Reports: Chicken Pox, Measles, Mumps - Past Surgical History GI Surgical History: Reports: Colonoscopy, Colostomy, EGD Other GI Surgeries/Procedures: new colostomy 10/23/20 Female Surgical History: Reports: D&C, Endometrial Ablation, Lithotripsy/ESWL, Other (See Below) Other Female Surgeries/Procedures: hysteroscopy with polypectomy Musculoskeletal Surgical History: Reports: Arthroscopic Knee Other Musculoskeletal Surgeries/Procedures:: R knee scope Social & Family History - Tobacco Use Tobacco Use Status *Q: Never Tobacco User - Caffeine Use Caffeine Use: Reports: Coffee - Alcohol Use Alcohol Use History: No - Recreational Drug Use Recreational Drug Use: No - Living Situation & Occupation Living situation: Reports: Occupation: Retired ED ROS GENERAL - Review of Systems Review Of Systems: See Below Constitutional: Reports: No Symptoms HEENT: Reports: No Symptoms Respiratory: Reports: No Symptoms Cardiovascular: Reports: No Symptoms Endocrine: Reports: No Symptoms GI/Abdominal: Reports: Abdominal Pain, Vomiting, Other (No output from ostomy) : Reports: No Symptoms Musculoskeletal: Reports: No Symptoms Skin: Reports: No Symptoms Neurological: Reports: No Symptoms Psychiatric: Reports: No Symptoms Hematologic/Lymphatic: Reports: Easy Bruising (Chronically anticoagulated with C oumadin.) Immunologic: Reports: No Symptoms ED EXAM, GI/ABD - Physical Exam Exam: See Below Exam Limited By: No Limitations General Appearance: Alert, Mild Distress, Obese, Other (Nontoxic appearing.) Eyes: Bilateral: Normal Appearance, EOMI Ears: Normal External Exam, Hearing Grossly Normal Nose: Normal Inspection, Normal Mucosa, No Blood Throat/Mouth: Normal Inspection, Normal Lips, Normal Voice, No Airway Compromise, Other (Somewhat dry mucous membranes.) Head: Atraumatic, Normocephalic Neck: Normal Inspection, Supple, Non-Tender, Full Range of Motion Respiratory/Chest: No Respiratory Distress, Lungs Clear, Normal Breath Sounds, No Accessory Muscle Use, Chest Non-Tender Cardiovascular: Normal Peripheral Pulses, Regular Rate, Rhythm, No Murmur GI/Abdominal Exam: Distended, Tender, Abnormal Bowel Sounds (Somewhat decreased bowel sounds), Other (Protuberant) Back Exam: Normal Inspection Extremities: Normal Inspection, Non-Tender Neurological: Alert, Oriented, CN II-XII Intact, Normal Cognition, No Motor/Sensory Deficits Psychiatric: Normal Affect Skin Exam: Warm, Dry, Normal Color, No Rash, Wound/Incision (Wounds on abdominal midline that appear to be healing.) Course - Vital Signs Last Recorded V/S: Last Vital Signs Temp 36.7 C 11/17/20 15:44 Pulse 82 11/17/20 19:55 Resp 18 11/17/20 19:55 BP 132/58 L 11/17/20 19:55 Pulse Ox 95 11/17/20 19:55 - Orders/Labs/Meds Orders: Active Orders 24 hr Category Date Time Status Abdomen Pelvis w Cont [CT] Stat Exams 11/17/20 17:35 Taken Peripheral IV Insertion Adult [OM.PC] Routine Oth 11/17/20 16:22 Ordered Labs: Laboratory Tests 11/17/20 11/17/20 11/17/20 Range/Units 16:50 16:50 16:50 WBC 7.0 (3.0-10.3) x10-3/uL RBC 3.48 L (3.60-5.20) x10(6)uL Hgb 10.2 L D (11.4-15.5) g/dL Hct 31.2 L D (34.2-48.2) % MCV 89.5 (76.7-100.5) fL MCH 29.3 (23.9-33.9) pg MCHC 32.8 (31.9-34.8) g/dL RDW 14.5 (12.3-16.5) % Plt Count 343 (151-488) x10(3)uL MPV 7.2 (7.1-12.4) fL Neut % (Auto) 59.3 (30.8-76.2) % Lymph % (Auto) 25.2 (18.4-52.1) % Casey % (Auto) 12.3 (4.4-15.7) % Eos % (Auto) 2.2 (0.6-8.1) % Baso % (Auto) 1.0 (0.2-1.5) % Neut # (Auto) 4.1 (1.5-6.3) x10-3/uL Lymph # (Auto) 1.8 (1.0-4.4) x10-3/uL Casey # (Auto) 0.9 (0.3-1.0) x10-3/uL Eos # (Auto) 0.2 (0.0-0.8) x10-3/uL Baso # (Auto) 0.1 (0.0-0.1) x10-3/uL PT (9.0-11.1) sec INR (1.00-1.24) Sodium 138 (135-145) mmol/L Potassium 3.6 (3.5-5.3) mmol/L Chloride 101 (100-110) mmol/L Carbon Dioxide 26 (21-32) mmol/L BUN 11 (7-18) mg/dL Creatinine 1.0 (0.55-1.02) mg/dL Est Cr Clr Drug Dosing TNP Estimated GFR (MDRD) 54 L (>60) BUN/Creatinine Ratio 11.0 (9-20) Glucose 113 (80-116) mg/dL Calcium 8.1 L (8.6-10.2) mg/dL Magnesium 1.6 L (1.8-2.5) mg/dL Total Bilirubin 0.3 (0.1-1.3) mg/dL AST 16 D (5-25) IU/L ALT 13 D (12-36) U/L Alkaline Phosphatase 96 (56-112) IU/L C-Reactive Protein 6.6 H* (0.5-0.9) mg/dL Total Protein 6.9 (6.0-8.0) g/dL Albumin 2.4 L (3.2-4.6) g/dL Globulin 4.5 g/dL Albumin/Globulin Ratio 0.5 Lipase (73-393) U/L 11/17/20 11/17/20 Range/Units 16:50 16:50 WBC (3.0-10.3) x10-3/uL RBC (3.60-5.20) x10(6)uL Hgb (11.4-15.5) g/dL Hct (34.2-48.2) % MCV (76.7-100.5) fL MCH (23.9-33.9) pg MCHC (31.9-34.8) g/dL RDW (12.3-16.5) % Plt Count (151-488) x10(3)uL MPV (7.1-12.4) fL Neut % (Auto) (30.8-76.2) % Lymph % (Auto) (18.4-52.1) % Casey % (Auto) (4.4-15.7) % Eos % (Auto) (0.6-8.1) % Baso % (Auto) (0.2-1.5) % Neut # (Auto) (1.5-6.3) x10-3/uL Lymph # (Auto) (1.0-4.4) x10-3/uL Casey # (Auto) (0.3-1.0) x10-3/uL Eos # (Auto) (0.0-0.8) x10-3/uL Baso # (Auto) (0.0-0.1) x10-3/uL PT 27.5 H (9.0-11.1) sec INR 2.72 H (1.00-1.24) Sodium (135-145) mmol/L Potassium (3.5-5.3) mmol/L Chloride (100-110) mmol/L Carbon Dioxide (21-32) mmol/L BUN (7-18) mg/dL Creatinine (0.55-1.02) mg/dL Est Cr Clr Drug Dosing Estimated GFR (MDRD) (>60) BUN/Creatinine Ratio (9-20) Glucose (80-116) mg/dL Calcium (8.6-10.2) mg/dL Magnesium (1.8-2.5) mg/dL Total Bilirubin (0.1-1.3) mg/dL AST (5-25) IU/L ALT (12-36) U/L Alkaline Phosphatase (56-112) IU/L C-Reactive Protein (0.5-0.9) mg/dL Total Protein (6.0-8.0) g/dL Albumin (3.2-4.6) g/dL Globulin g/dL Albumin/Globulin Ratio Lipase 191 (73-393) U/L Meds: Medications Discontinued Medications Generic Name Dose Route Start Last Admin Trade Name Freq PRN Reason Stop Dose Admin Sodium Chloride 500 mls @ 999 mls/hr 11/17/20 16:23 11/17/20 16:35 Normal Saline IV 11/17/20 16:53 999 mls/hr .BOLUS ONE Administration Sodium Chloride 1,000 mls @ 100 mls/hr 11/17/20 16:30 11/17/20 17:51 Normal Saline IV 100 mls/hr ASDIRECTED OLIVE Administration Piperacillin Sod/Tazobactam 50 mls @ 100 mls/hr 11/17/20 20:29 11/17/20 20:34 Sod 3.375 gm/ Sodium Chloride IV 11/17/20 20:58 100 mls/hr ONETIME ONE Administration Vancomycin HCl 2 gm/ Premix 400 mls @ 200 mls/hr 11/17/20 20:43 11/17/20 21:10 IV 11/17/20 22:42 200 mls/hr STAT ONE Administration Sodium Chloride 10 ml 11/17/20 16:22 Sodium Chloride 0.9% 10 Ml Syringe FLUSH ASDIRECTED PRN Keep Vein Open - Radiology Interpretation Free Text/Narrative:: CT scan abdomen and pelvis shows subcutaneous midline abdominal wall incisional abscess that is 16 x 5 x 2 cm. So either an ileus or partial small bowel obstruction without a definitive point of transition but the majority of the dilated loops are deep to the colostomy. - Re-Assessments/Exams Free Text/Narrative Re-Assessment/Exam: 11/17/20 17:30: The patient's white blood cell count is normal. Hemoglobin is 10.2. The patient's electrolytes, BUN and creatinine are normal except for magnesium of 1.6. LFTs are normal. A CRP was 6.6. Her INR was 2.72. The patient continues to have distention and no output from her ostomy. I am concerned about small bowel obstruction and intra-abdominal abscess. I will send the patient for CT scan of her abdomen and pelvis with IV contrast. 11/17/20 18:45: The patient remains hemodynamically stable. She still has had no output except for a small amount of gas from her ostomy. She remains somewhat distended. There is still no vomiting as yet. There have been multiple CT scans for this patient and she is about to go over for her CT scan soon. Continue the patient at an nothing by mouth status and with IV fluids of normal saline at 100 mL per hour. 11/17/20 19:30: Patient is back from CT now. She remains hemodynamically stable. I am awaiting the results of the CT scan. 11/17/20 20:10: The CT scan results are back and show evidence of an abdominal wall abscess and a partial small bowel obstruction versus ileus. The patient will need surgical cares which are not available at [facility]. I will discuss this with the patient and her . 11/17/20 20:15: I discussed this with the patient and her and they would want me to discuss her case with the doctors at [facility]. The patient has been telling me that she would not be transported by ambulance that she would refuse that it would go and said by private vehicle. I have strongly advised against this to the patient as I feel that she will need IV antibiotics administered and will need close monitoring. She states that she will think about it. 11/17/20 20:20: I discussed the patient's case with Dr. Urias, intake physician at [facility] in [place], and he has agreed to accept the patient in transfer. The patient will get Zosyn 3.375 g IV now prior to transport. She is still stating that she wants to go by private vehicle. 11/17/20 20:45: Now, the patient is telling me that she will consent to go by ambulance. Therefore, I am also ordering vancomycin 2 g to be given IV. We will continue with NPO status and with IV fluids going at 100 mL per hour. We are awaiting contact from [facility] for bed placement and then we will arrange for ambulance transport for the patient. Departure - Departure Time of Disposition: 22:30 Disposition: DC/Tfer to [facility] 02 Condition: Fair Clinical Impression: Abdominal wall abscess at site of surgical wound, Partial small bowel obstruction - Discharge Information Referrals: Fernando Carrasco MD [Primary Care Provider] - Forms: ED Department Discharge Sepsis Event Note (ED) - Evaluation Sepsis Screening Result: No Definite Risk - Focused Exam Vital Signs: Vital Signs Pulse Resp BP Pulse Ox 11/17/20 19:55 82 18 132/58 L 95 - My Orders Last 24 Hours: My Active Orders 11/17/20 16:22 Peripheral IV Insertion Adult [OM.PC] Routine 11/17/20 17:35 Abdomen Pelvis w Cont [CT] Stat - Assessment/Plan Last 24 Hours: My Active Orders 11/17/20 16:22 Peripheral IV Insertion Adult [OM.PC] Routine 11/17/20 17:35 Abdomen Pelvis w Cont [CT] Stat
[2020-11-17] MEDS ORDERED: Sodium Chloride 0.9% 10 ML Syringe FLUSH PRN (16:22)
[2020-11-17] MEDS ORDERED: Sodium Chloride 0.9% 500 ML IV ONE (16:23)
[2020-11-17] MEDS: Sodium Chloride 0.9% 1,000 ML IV SCH ×2 (16:35→17:51)
[2020-11-17] MEDS ORDERED: Iopamidol 755 MG/ML 150 ML Bottle IV ONE (18:45)
[2020-11-17 19:56] VITALS: BP 132/58; PULSE 82
[2020-11-17] MEDS ORDERED: Piperacillin/Tazobactam 3.375 GM in Sodium Chloride 0.9% 50 ML IV ONE (20:29)
[2020-11-17] MEDS ORDERED: VANCOmycin 2 GM/400 ML 2 GM in Premix Bag 1 BAG IV ONE (20:43)
== END 2020-11-17 21:43 ==
LOC: FB.ED 15:38
DX: T81.40XA Infection following a procedure, unspecified, initial encounter (principal); L02.211 Cutaneous abscess of abdominal wall; K56.600 Partial intestinal obstruction, unspecified as to cause; I10 Essential (primary) hypertension; Z86.718 Personal history of other venous thrombosis and embolism; Z79.01 Long term (current) use of anticoagulants
CPT/HCPCS: 36415; 74177; 80053; 83690; 83735; 85025; 85610; 86140; 96365; 96367; 99285; J2543; J3370; J7030; J7040; Q9967

== ENCOUNTER 2021-02-19 14:22 | Inpatient (IN) | payer MEDICARE, BC ==
--- NOTE | 2021-02-19 15:07 | EDM.PDOC ---
ED HPI GENERAL MEDICAL PROBLEM - General Chief Complaint: General Stated Complaint: WEAKNESS Time Seen by Provider: 02/19/21 14:50 Source of Information: Reports: Patient, Family, Old Records, RN History Limitations: Reports: No Limitations - History of Present Illness INITIAL COMMENTS - FREE TEXT/NARRATIVE: 75 yo female here for frequent falls over the past couple of days. Is not sure why she is falling. She is on warfarin. She was seen in urgent care yesterday and was placed on potassium and iron. She does not believe that she has hit her head on any of these falls. She has not had diarrhea, vomiting, fever, or seizures. She is here with her for eval. INR in clinic was subtherapeutic so her warfarin dose was increased. 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: Other (see below) (potassium and Iron) - Related Data Allergies Allergy/AdvReac Type Severity Reaction Status Date / Time morphine AdvReac Vomiting Verified 10/22/20 17:33 Home Meds: Home Meds ALPRAZolam [Xanax] 1 mg PO BEDTIME PRN 08/15/14 [History] Escitalopram [Lexapro] 10 mg PO DAILY 08/15/14 [History] Losartan/Hydrochlorothiazide [Hyzaar 50-12.5 Tablet] 1 tab PO DAILY 08/15/14 [History] Acetaminophen [Pain Relief Extra Strength] 1,000 mg PO Q8H PRN 01/14/17 [History] Melatonin 5 mg PO BEDTIME 01/14/17 [History] Warfarin Sodium 2.5 mg PO DAILY 10/20/18 [History] Potassium Chloride 10 mg PO TID 11/17/20 [History] Past Medical History HEENT History: Reports: Cataract, Impaired Vision Cardiovascular History: Reports: Blood Clots/VTE/DVT, Hypertension Respiratory History: Reports: PE, Sleep Apnea Gastrointestinal History: Reports: Colon Polyp, Gastritis Genitourinary History: Reports: Renal Calculus Other Genitourinary History: had stents when had kidney stone in Jul 2018 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 (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 ENGINEER History: Musculoskeletal History: Reports: Osteoarthritis Neurological History: Reports: Concussion, Head Trauma Psychiatric History: Reports: Anxiety, Depression Endocrine/Metabolic History: Reports: Obesity/BMI 30+ Hematologic History: Reports: Anemia, Anticoagulation Therapy, Blood Transfusion(s) Immunologic History: Reports: None Oncologic (Cancer) History: Reports: None Dermatologic History: Reports: None - Infectious Disease History Infectious Disease History: Reports: Chicken Pox, Measles, Mumps - Past Surgical History Head Surgeries/Procedures: Reports: None HEENT Surgical History: Reports: None Cardiovascular Surgical History: Reports: None Respiratory Surgical History: Reports: None GI Surgical History: Reports: Colonoscopy, Colostomy, EGD Other GI Surgeries/Procedures: new colostomy 10/23/20 Female Surgical History: Reports: D&C, Endometrial Ablation, Lithotripsy/ESWL, Other (See Below) Other Female Surgeries/Procedures: hysteroscopy with polypectomy Endocrine Surgical History: Reports: None Neurological Surgical History: Reports: None Musculoskeletal Surgical History: Reports: Arthroscopic Knee Other Musculoskeletal Surgeries/Procedures:: R knee scope Oncologic Surgical History: Reports: None Dermatological Surgical History: Reports: None Social & Family History - Family History Family Medical History: No Pertinent Family History - Caffeine Use Caffeine Use: Reports: Coffee - Living Situation & Occupation Living situation: Reports: Occupation: Retired ED ROS GENERAL - Review of Systems Review Of Systems: See Below Constitutional: Reports: Weakness HEENT: Reports: No Symptoms Respiratory: Reports: No Symptoms Cardiovascular: Reports: No Symptoms Endocrine: Reports: No Symptoms GI/Abdominal: Reports: No Symptoms : Reports: No Symptoms Musculoskeletal: Reports: No Symptoms Skin: Reports: No Symptoms Neurological: Reports: Difficulty Walking (falling often), Gait Disturbance (falling often) ED EXAM, GENERAL - Physical Exam Exam: See Below Exam Limited By: No Limitations General Appearance: Alert, WD/WN, No Apparent Distress, Obese Eye Exam: Bilateral Eye: Normal Inspection, Nystagmus (noted on R lateral gaze), PERRL Ear Exam: Bilateral Ear: Auricle Normal, Canal Normal Nose: Normal Inspection, No Blood Throat/Mouth: Normal Inspection, Normal Lips, Normal Oropharynx, Normal Voice, No Airway Compromise Head: Atraumatic, Normocephalic Neck: Normal Inspection Respiratory/Chest: No Respiratory Distress, Lungs Clear, Normal Breath Sounds, No Accessory Muscle Use Cardiovascular: Regular Rate, Rhythm, No Edema GI/Abdominal: Normal Bowel Sounds, Soft, Non-Tender, No Distention Extremities: Normal Inspection, Normal Range of Motion, Non-Tender, No Pedal Edema Neurological: Alert, Oriented, CN II-XII Intact, Normal Cognition, No Motor/Sensory Deficits Psychiatric: Normal Affect, Normal Mood Skin Exam: Warm, Dry, Intact, Normal Color, No Rash Course - Vital Signs Text/Narrative:: Case discussed with Dr. Dunaway @ 1620 Last Recorded V/S: Last Vital Signs Temp 36.7 C 02/19/21 14:30 Pulse 69 02/19/21 14:30 Resp 16 02/19/21 14:30 BP 143/77 H 02/19/21 14:30 Pulse Ox 96 02/19/21 14:30 - Orders/Labs/Meds Orders: Active Orders 24 hr Category Date Time Status Head wo Cont [CT] Stat Exams 02/19/21 15:04 Taken CULTURE URINE [RM] Stat Lab 02/19/21 16:10 Ordered TROPONIN I [CHEM] Stat Lab 02/19/21 15:15 Received Labs: Laboratory Tests 02/19/21 02/19/21 Range/Units 15:13 15:15 Urine Color Yellow (YELLOW) Urine Appearance Slightly cloudy (CLEAR) Urine pH 5.0 (5.0-6.5) Ur Specific [place] 1.010 (1.010-1.025) Urine Protein Negative (NEGATIVE) mg/dL Urine Glucose (UA) Normal (NORMAL) mg/dL Urine Ketones Negative (NEGATIVE) mg/dL Urine Occult Blood Negative (NEGATIVE) Urine Nitrite Negative (NEGATIVE) Urine Bilirubin Negative (NEGATIVE) Urine Urobilinogen Normal (NEGATIVE) mg/dL Ur Leukocyte Esterase Large H (NEGATIVE) Urine RBC 0-5 (0-5) Urine WBC >100 H (0-5) Ur Squamous Epith Cells Few H (NS,R,O) Urine Bacteria Many H (NS) Ethyl Alcohol < 0.03 (<0.03) % Meds: Medications Discontinued Medications Generic Name Dose Route Start Last Admin Trade Name Freq PRN Reason Stop Dose Admin Cephalexin 500 mg 02/19/21 16:10 02/19/21 16:17 Cephalexin 500 Mg Cap PO 02/19/21 16:11 500 mg ONETIME ONE Administration - Radiology Interpretation Free Text/Narrative:: Head CT scan-nothing acute, microvascular changes CT Results Date: 02/19/21 CT Results Time: 16:11 Departure - Departure Time of Disposition: 16:30 Disposition: Admitted As Inpatient 65 Condition: Fair Clinical Impression: Cystitis, Frequent falls - Discharge Information *PRESCRIPTION DRUG MONITORING PROGRAM REVIEWED*: Not Applicable *COPY OF PRESCRIPTION DRUG MONITORING REPORT IN PATIENT CHAZ: Not Applicable Referrals: Fernando Carrasco MD [Primary Care Provider] - Forms: ED Department Discharge Sepsis Event Note (ED) - Focused Exam Vital Signs: Vital Signs Temp Pulse Resp BP Pulse Ox 02/19/21 14:30 36.7 C 69 16 143/77 H 96 - My Orders Last 24 Hours: My Active Orders 02/19/21 15:04 Head wo Cont [CT] Stat 02/19/21 15:15 TROPONIN I [CHEM] Stat 02/19/21 16:10 CULTURE URINE [RM] Stat - Assessment/Plan Last 24 Hours: My Active Orders 02/19/21 15:04 Head wo Cont [CT] Stat 02/19/21 15:15 TROPONIN I [CHEM] Stat 02/19/21 16:10 CULTURE URINE [RM] Stat
[2021-02-19] MEDS ORDERED: Cephalexin 500 MG Cap PO ONE (16:10)
[2021-02-19] MEDS ORDERED: ALPRAZolam 0.5 MG Tab PO PRN (17:12)
[2021-02-19] MEDS ORDERED: Acetaminophen 500 MG Tab PO PRN (17:12)
[2021-02-19] MEDS ORDERED: Carboxymethylcellulose Sodium 0.5% Ophth Soln 15 ML Bottle EYEBOTH PRN (17:12)
--- NOTE | 2021-02-19 17:23 | CT ---
INDICATION: On warfarin, frequent falls lately, unsteady on her feet, balance and coordination off, last five to six days. [address] HEAD WITHOUT CONTRAST: Spiral 3.75 mm axial sections were obtained through the brain without contrast with axial, sagittal and coronal reconstructions, 02/19/21 - no comparisons. TOTAL EXAM DLP: 1270.76 mGy/cm. The paranasal sinuses appear to be fairly well aerated except for what appear to be retention cysts in a posterior and an anterior right ethmoidal air cell and in the right frontal air cell, also, laterally. The mastoid air cells appear to be well aerated. The cranium appears to be intact. The orbits appear to be intact. Calcifications are noted in the vertebral and internal carotid arteries. A focal area of increased density is noted in the left cerebellum, which may represent some minimal dystrophic calcification. A definite bleeding site was not identified - no definite acute intracranial abnormality was seen. No shift of midline structures was noted. The ventricles are slightly prominent, compatible with a mild degree of central atrophy. There is some periventricular abnormal decreased density, especially on the left in the parietal lobe and in both frontal lobe areas. No gross subcortical infarcts were seen, however, but these findings may represent a mild degree of microvascular disease-type changes, although other cause of leukoencephalopathy cannot be excluded. IMPRESSION: 1. No definite acute intracranial abnormality. 2. 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 3. Mild central atrophy. 4. Minimal findings in ethmoidal air cells and right frontal air cell. Report was called to Dr. Fontenot at 1610 hours, 02/19/21. [facility]
--- NOTE | 2021-02-19 18:21 | PCM.HP.2 ---
H&P History of Present Illness - General Date of Service: 02/19/21 Admit Problem/Dx: Admission Diagnosis/Problem Admission Diagnosis/Problem Fall Source of Information: Patient, Family, Provider - History of Present Illness Initial Comments - Free Text/Narative: Jeanette was brought to ER for frequent falls over the past couple of days. Is not sure why she is falling, no symptoms prior to fall, just goes down. No LOC. She is on warfarin. She was seen in urgent care yesterday and was placed on potassium and iron. Her states he has just found her on floor has not witnessed falls. No fever, chills, diarrhea, vomiting, or seizures. No sore throat, shortness of breath, cough, chest pain. No abdominal pain. No constipation. States she does not have any urinary symptoms, doesn't feel she is more confused. INR in clinic was subtherapeutic so her warfarin dose was increased. She has been tested 4 times this year for Covid all negative. She has not had vaccine, her has. 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 She has not eaten all day. In ER, her CBC and Chemistry were not repeated, UA showed signs of infection, Troponin was negative. CT head was negative for acute changes. Received a dose of Cephalexin in ER, told ER doctor that he could not care for her at home any more and was looking for possible NH placement. - Related Data Allergies/Adverse Reactions: Allergies Allergy/AdvReac Type Severity Reaction Status Date / Time morphine AdvReac Vomiting Verified 02/19/21 16:27 Home Medications: Home Meds Escitalopram [Lexapro] 10 mg PO DAILY 08/15/14 [History] Losartan/Hydrochlorothiazide [Hyzaar 50-12.5 Tablet] 1 tab PO DAILY 08/15/14 [History] Warfarin Sodium 2.5 mg PO DAILY 10/20/18 [History] Potassium Chloride 10 mg PO TID 11/17/20 [History] ALPRAZolam [Alprazolam] 0.5 mg PO DAILY PRN 02/19/21 [History] Acetaminophen [Tylenol Extra Strength] 500 mg PO Q8HR PRN 02/19/21 [History] Acetaminophen/Diphenhydramine [Tylenol Pm Ex-Strength Caplet] 1 tab PO BEDTIME 02/19/21 [History] Carboxymethylcellulose Sodium [Artificial Tears] 1 drop EYEBOTH Q4HR PRN 02/19/21 [History] Ferrous Sulfate 325 mg PO DAILY 02/19/21 [History] Melatonin 5 mg PO BEDTIME 02/19/21 [History] Past Medical History HEENT History: Reports: Impaired Vision Cardiovascular History: Reports: Blood Clots/VTE/DVT, Hypertension Respiratory History: Reports: PE, Sleep Apnea Gastrointestinal History: Reports: Bowel Obstruction, Colon Polyp, Gastritis Genitourinary History: Reports: Renal Calculus Other Genitourinary History: had stents when had kidney stone in Jul 2018 [employer] History: Reports: Other (See Below) Other OB/BYN History: Musculoskeletal History: Reports: Osteoarthritis Neurological History: Reports: Concussion, Head Trauma Psychiatric History: Reports: Anxiety, Depression Endocrine/Metabolic History: Reports: Obesity/BMI 30+ Hematologic History: Reports: Anemia, Anticoagulation Therapy, Blood Transfusion(s) Immunologic History: Reports: None Oncologic (Cancer) History: Reports: None Dermatologic History: Reports: None - Infectious Disease History Infectious Disease History: Reports: Chicken Pox, Measles, Mumps, Pertussis (Whooping Cough) - Past Surgical History Head Surgeries/Procedures: Reports: None HEENT Surgical History: Reports: None Cardiovascular Surgical History: Reports: None Respiratory Surgical History: Reports: None GI Surgical History: Reports: Colonoscopy, Colostomy, EGD Other GI Surgeries/Procedures: new colostomy 10/23/20 Female Surgical History: Reports: D&C, Endometrial Ablation, Lithotripsy/ESWL, Other (See Below) Other Female Surgeries/Procedures: hysteroscopy with polypectomy Endocrine Surgical History: Reports: None Neurological Surgical History: Reports: None Musculoskeletal Surgical History: Reports: Arthroscopic Knee Other Musculoskeletal Surgeries/Procedures:: R knee scope. Right knee scraped Oncologic Surgical History: Reports: None Dermatological Surgical History: Reports: None Social & Family History - Family History Family Medical History: No Pertinent Family History - Tobacco Use Tobacco Use Status *Q: Never Tobacco User Second Hand Smoke Exposure: No - Caffeine Use Caffeine Use: Reports: Coffee, Tea - Recreational Drug Use Recreational Drug Use: No - Living Situation & Occupation Living situation: Reports: Occupation: Retired H&P Review of Systems - Review of Systems: Review Of Systems: See Below Exam - Exam Exam: See Below - Vital Signs Vital Signs: Last Vital Signs Temp 98.1 F 02/19/21 14:30 Pulse 69 02/19/21 14:30 Resp 16 02/19/21 14:30 BP 143/77 H 02/19/21 14:30 Pulse Ox 96 02/19/21 14:30 Weight: 228 lb - Exam General: Alert, Oriented, Cooperative HEENT: PERRLA, Conjunctiva Clear, EOMI, Hearing Intact, Mucosa Moist & [place] Neck: Trachea Midline Lungs: Clear to Auscultation, Normal Respiratory Effort Cardiovascular: Regular Rate, Regular Rhythm GI/Abdominal Exam: Normal Bowel Sounds, Soft, Non-Tender, No Distention (Female) Exam: Deferred Rectal (Female) Exam: Deferred Extremities: No Pedal Edema, Normal Capillary Refill Peripheral Pulses: 2+: Radial (L), Radial (R), Dorsalis Pedis (L), Dorsalis Pedis (R) Skin: Warm, Dry, Intact Neurological: Cranial Nerves Intact, Normal Speech, Normal Tone Psychiatric: Normal Affect, Normal Mood - Patient Data Lab Results Last 24 hrs: Laboratory Results - last 24 hr 02/19/21 02/19/21 02/19/21 Range/Units 15:13 15:15 15:15 Troponin I 6.7 (4.0-60.3) pg/mL Urine Color Yellow (YELLOW) Urine Appearance Slightly cloudy (CLEAR) Urine pH 5.0 (5.0-6.5) Ur Specific [place] 1.010 (1.010-1.025) Urine Protein Negative (NEGATIVE) mg/dL Urine Glucose (UA) Normal (NORMAL) mg/dL Urine Ketones Negative (NEGATIVE) mg/dL Urine Occult Blood Negative (NEGATIVE) Urine Nitrite Negative (NEGATIVE) Urine Bilirubin Negative (NEGATIVE) Urine Urobilinogen Normal (NEGATIVE) mg/dL Ur Leukocyte Esterase Large H (NEGATIVE) Urine RBC 0-5 (0-5) Urine WBC >100 H (0-5) Ur Squamous Epith Cells Few H (NS,R,O) Urine Bacteria Many H (NS) Ethyl Alcohol < 0.03 (<0.03) % IN [facility]: CBC 5.9, Hgb 9.9 K 3.3 INR 1.0 Sepsis Event Note - Evaluation Sepsis Screening Result: No Definite Risk - Focused Exam Vital Signs: Vital Signs Temp Pulse Resp BP Pulse Ox 02/19/21 14:30 98.1 F 69 16 143/77 H 96 *Q Meaningful Use (ADM) - VTE *Q VTE Mechanical Contraindications *Q: At Risk for Falls - VTE Risk Assess *Q Each Risk Factor Represents 1 Point: Obesity ( BMI > 25 kg/m2) Total Score 1 Point Risk Factors: 1 Each Risk Factor Represents 2 Points: None Total Score 2 Point Risk Factors: 0 Each Risk Factor Represents 3 Points: Age 75 Years or Greater, History of DVT/PE Total Score 3 Point Risk Factors: 6 Each Risk Factor Represents 5 Points: None Total Score 5 Point Risk Factors: 0 Venous Thromboembolism Risk Factor Score *Q: 7 - Problem List (1) Cystitis SNOMED Code(s): 71932394 ICD Code: N30.90 - CYSTITIS, UNSPECIFIED WITHOUT HEMATURIA Status: Acute Current Visit: Yes (2) Frequent falls SNOMED Code(s): 639501582 ICD Code: R29.6 - REPEATED FALLS Status: Acute Current Visit: Yes (3) Diverticulosis of colon SNOMED Code(s): 517269619 ICD Code: K57.30 - DVRTCLOS OF LG INT W/O PERFORATION OR ABSCESS W/O BLEEDING Status: Chronic Current Visit: No Problem Details: s/p Colostomy Qualifiers: Diverticulosis bleeding: diverticulosis without bleeding Qualified Code(s): K57.30 - Diverticulosis of large intestine without perforation or abscess without bleeding (4) Hiatal hernia with GERD and esophagitis SNOMED Code(s): 048316052 ICD Code: K44.9 - DIAPHRAGMATIC HERNIA WITHOUT OBSTRUCTION OR GANGRENE; K21.0 - GASTRO-ESOPHAGEAL REFLUX DISEASE WITH ESOPHAG * DO NOT USE * Status: Chronic Current Visit: No (5) Internal hemorrhoids SNOMED Code(s): 51535153 ICD Code: K64.8 - OTHER HEMORRHOIDS Status: Chronic Current Visit: No (6) Recurrent pulmonary embolism SNOMED Code(s): 526215822 ICD Code: I26.99 - OTHER PULMONARY EMBOLISM WITHOUT ACUTE COR PULMONALE Status: Chronic Current Visit: No (7) Subtherapeutic international normalized ratio (INR) SNOMED Code(s): 394439151, 526420332 ICD Code: R79.1 - ABNORMAL COAGULATION PROFILE Status: Acute Current Vi sit: No Problem List Initiated/Reviewed/Updated: Yes Orders Last 24hrs: Active Orders 24 hr Category Date Time Status Patient Status [ADT] Routine ADT 02/19/21 17:09 Active Oxygen Therapy [RC] PRN Care 02/19/21 17:09 Active Up With Assistance [RC] ASDIRECTED Care 02/19/21 17:09 Active Up ad Rosy [RC] ASDIRECTED Care 02/19/21 17:09 Active VTE/DVT Education [RC] Per Unit Routine Care 02/19/21 17:09 Active Vital Signs [RC] Q4H Care 02/19/21 17:09 Active OT Evaluation and Treatment [CONS] Routine Cons 02/19/21 17:09 Active PT Evaluation and Treatment [CONS] Routine Cons 02/19/21 17:09 Active Regular Diet [DIET] Diet 02/19/21 Dinner Active BASIC METABOLIC PANEL,BMP [CHEM] Routine Lab 02/20/21 06:00 Ordered CBC WITH AUTO DIFF [HEME] Routine Lab 02/20/21 06:00 Ordered CULTURE URINE [RM] Stat Lab 02/19/21 15:13 Received INR,PT,PROTHROMBIN TIME [COAG] Routine Lab 02/20/21 06:00 Ordered ALPRAZolam [Xanax] Med 02/19/21 17:12 Active 0.5 mg PO DAILY PRN Acetaminophen [Tylenol Extra Strength] Med 02/19/21 17:12 Active 500 mg PO Q8H PRN Acetaminophen/Diphenhydramine [Tylenol PM Extra Med 02/19/21 21:00 Active Strength] 1 tab PO BEDTIME Carboxymethylcellulose Sodium [Refresh Tears 0.5%] Med 02/19/21 17:12 Active 0 ml EYEBOTH Q4H PRN Escitalopram [Lexapro] Med 02/20/21 09:00 Active 10 mg PO DAILY Ferrous Sulfate Med 02/20/21 09:00 Active 325 mg PO DAILY Losartan [Cozaar] Med 02/20/21 09:00 Active 50 mg PO DAILY Melatonin [Melatonin] Med 02/19/21 21:00 Pending 3 mg PO BEDTIME Potassium Chloride [Klor-Con 10] Med 02/19/21 21:00 Active 10 meq PO TID Sodium Chloride 0.9% [Saline Flush] Med 02/19/21 17:09 Active 10 ml FLUSH ASDIRECTED PRN Warfarin Sliding Scale [Coumadin Sliding Scale] Med 02/20/21 09:00 Pending 1 each PO DAILY Warfarin [Coumadin] Med 02/20/21 09:00 Pending 2.5 mg PO DAILY cefTRIAXone [Rocephin] Med 02/20/21 09:00 Active 1 gm IVPUSH Q24H hydroCHLOROthiazide Med 02/20/21 09:00 Active 12.5 mg PO DAILY Antiembolic Hose [OM.PC] Per Unit Routine Oth 02/19/21 17:10 Ordered Saline Lock Insert [OM.PC] Routine Oth 02/19/21 17:09 Ordered Resuscitation Status Routine Resus Stat 02/19/21 17:40 Ordered Medication Orders Acetaminophen (Acetaminophen 500 Mg Tab) 500 mg PO Q8H PRN PRN Reason: Pain Acetaminophen/Diphenhydramine HCl (Acetaminophen/Diphenhydramine 500-25 Mg Tab) 1 tab PO BEDTIME OLIVE Alprazolam (Alprazolam 0.5 Mg Tab) 0.5 mg PO DAILY PRN PRN Reason: Anxiety Artificial Tears (Carboxymethylcellulose Sodium 0.5% Ophth Soln 15 Ml Bottle) 0 ml EYEBOTH Q4H PRN PRN Reason: Dry Eyes Ceftriaxone Sodium (Ceftriaxone 1 Gm Vial) 1 gm IVPUSH Q24H OLIVE Escitalopram Oxalate (Escitalopram 10 Mg Tab) 10 mg PO DAILY OLIVE Ferrous Sulfate (Ferrous Sulfate 325 Mg Tab) 325 mg PO DAILY OLIVE Hydrochlorothiazide (Hydrochlorothiazide 12.5 Mg Cap) 12.5 mg PO DAILY OLIVE Losartan Potassium (Losartan 50 Mg Tab) 50 mg PO DAILY [facility] Non-Formulary Medication (Melatonin [Melatonin]) 3 mg PO BEDTIME OLIVE Potassium Chloride (Potassium Chloride 10 Meq Tab.Er) 10 meq PO TID OLIVE Sodium Chloride (Sodium Chloride 0.9% 10 Ml Syringe) 10 ml FLUSH ASDIRECTED PRN PRN Reason: Keep Vein Open Warfarin Sodium (Warfarin 2.5 Mg Tab) 2.5 mg PO DAILY OLIVE Warfarin Sodium (Warfarin Sliding Scale) 1 each PO DAILY [facility] Assessment/Plan Comment:: 1. Admit for inpatient status for recurrent falls, UTI, subtherapeutic INR. 2. UTIs: Rocephin 1 g IV q24h in am. UC pending. adjust treatments once culture back. Repeat BMP in am. 3. Recurrent falls: no sequelae before her falls, no LOC, could be related to UTI. Consult PT/OT. Negative CT head. 4. Resume home medications. 5. Diet: Regular. 6. Activity: up to chair and with assistance. 7. DVT prophylaxis: Coumadin per pharmacy. INR daily. 8. CODE STATUS: DNR/DNI. 9. Discharge planning: anticipate 48-72 hours of antibiotics and PT/OT, discharge planning to arrange for placement. - Mortality Measure Prognosis:: Poor
[2021-02-19] MEDS ORDERED: Acetaminophen/Diphenhydramine 500-25 MG Tab PO SCH (21:00)
[2021-02-19] MEDS ORDERED: Non-Formulary Medication 1 Each (Melatonin [Melatonin] 5 MG Tablet) PO SCH (21:00)
[2021-02-19] MEDS: Melatonin 3 MG Tab PO SCH (21:02)
[2021-02-19] MEDS: Potassium Chloride 10 MEQ Tab.ER PO SCH (21:02)
[2021-02-20] MEDS: Potassium Chloride 10 MEQ Tab.ER PO SCH ×3 (08:18→20:59)
[2021-02-20] MEDS: Escitalopram 10 MG Tab PO SCH (08:19)
[2021-02-20] MEDS: Ferrous Sulfate 325 MG Tab PO SCH (08:19)
[2021-02-20] MEDS: Hydrochlorothiazide 12.5 MG Cap PO SCH (08:20)
[2021-02-20] MEDS: Losartan 50 MG Tab PO SCH (08:21)
[2021-02-20] MEDS: cefTRIAXone 1 GM Vial IVPUSH SCH (08:22)
[2021-02-20] MEDS ORDERED: Warfarin Sliding Scale PO SCH (09:00)
[2021-02-20] MEDS: Enoxaparin 100 MG/1 ML Syringe SUBCUT SCH ×2 (10:37→20:59)
[2021-02-20] MEDS: Warfarin 5 MG Tab PO SCH (15:42)
--- NOTE | 2021-02-20 16:01 | PCM.PN ---
- General Info Date of Service: 02/20/21 Subjective Update: Jeanette feels better today, no fevers or chills. She is doing her own colostomy cares. Pharmacy had her bring her medications and found that she had Xanax tablets in her Coumadin bottle. Her last INR was 02/07 1.9. Coagulation clinic has been having her take 3-4 tablets a day with no improvement of her INR. She did not refill her Coumadin on the same day that she filled her Xanax, she thought the different color was a different generic form. Falls are likely se condary to medication error if she was take 3-4 mg of Xanax at a time. - Patient Data Vitals - Most Recent: Last Vital Signs Temp 98.8 F 02/20/21 12:39 Pulse 76 02/20/21 12:39 Resp 18 02/20/21 12:39 BP 112/47 L 02/20/21 12:39 Pulse Ox 91 L 02/20/21 12:39 Weight - Most Recent: 225 lb 9.6 oz Lab Results Last 24 Hours: Laboratory Results - last 24 hr 02/19/21 02/19/21 02/19/21 Range/Units 15:13 15:15 19:40 WBC (3.0-10.3) x10-3/uL RBC (3.60-5.20) x10(6)uL Hgb (11.4-15.5) g/dL Hct (34.2-48.2) % MCV (76.7-100.5) fL MCH (23.9-33.9) pg MCHC (31.9-34.8) g/dL RDW (12.3-16.5) % Plt Count (151-488) x10(3)uL MPV (7.1-12.4) fL Neut % (Auto) (30.8-76.2) % Lymph % (Auto) (18.4-52.1) % Lane % (Auto) (4.4-15.7) % Eos % (Auto) (0.6-8.1) % Baso % (Auto) (0.2-1.5) % Neut # (Auto) (1.5-6.3) x10-3/uL Lymph # (Auto) (1.0-4.4) x10-3/uL Lane # (Auto) (0.3-1.0) x10-3/uL Eos # (Auto) (0.0-0.8) x10-3/uL Baso # (Auto) (0.0-0.1) x10-3/uL PT (9.0-11.1) sec INR (1.00-1.24) Sodium (135-145) mmol/L Potassium (3.5-5.3) mmol/L Chloride (100-110) mmol/L Carbon Dioxide (21-32) mmol/L BUN (7-18) mg/dL Creatinine (0.55-1.02) mg/dL Est Cr Clr Drug Dosing mL/min Estimated GFR (MDRD) (>60) BUN/Creatinine Ratio (9-20) Glucose (80-116) mg/dL Calcium (8.6-10.2) mg/dL Troponin I 6.7 (4.0-60.3) pg/mL Urine Color Yellow (YELLOW) Urine Appearance Slightly cloudy (CLEAR) Urine pH 5.0 (5.0-6.5) Ur Specific Platina 1.010 (1.010-1.025) Urine Protein Negative (NEGATIVE) mg/dL Urine Glucose (UA) Normal (NORMAL) mg/dL Urine Ketones Negative (NEGATIVE) mg/dL Urine Occult Blood Negative (NEGATIVE) Urine Nitrite Negative (NEGATIVE) Urine Bilirubin Negative (NEGATIVE) Urine Urobilinogen Normal (NEGATIVE) mg/dL Ur Leukocyte Esterase Large H (NEGATIVE) Urine RBC 0-5 (0-5) Urine WBC >100 H (0-5) Ur Squamous Epith Cells Few H (NS,R,O) Urine Bacteria Many H (NS) SARS-CoV-2 RNA (ASAEL) Negative (NEGATIVE) 02/20/21 02/20/21 02/20/21 Range/Units 06:28 06:28 06:28 WBC 6.0 (3.0-10.3) x10-3/uL RBC 3.85 (3.60-5.20) x10(6)uL Hgb 9.8 L (11.4-15.5) g/dL Hct 31.0 L (34.2-48.2) % MCV 80.5 (76.7-100.5) fL MCH 25.5 (23.9-33.9) pg MCHC 31.7 L (31.9-34.8) g/dL RDW 15.5 (12.3-16.5) % Plt Count 297 (151-488) x10(3)uL MPV 6.7 L (7.1-12.4) fL Neut % (Auto) 55.3 (30.8-76.2) % Lymph % (Auto) 31.5 (18.4-52.1) % Lane % (Auto) 9.5 (4.4-15.7) % Eos % (Auto) 2.6 (0.6-8.1) % Baso % (Auto) 1.1 (0.2-1.5) % Neut # (Auto) 3.3 (1.5-6.3) x10-3/uL Lymph # (Auto) 1.9 (1.0-4.4) x10-3/uL Lane # (Auto) 0.6 (0.3-1.0) x10-3/uL Eos # (Auto) 0.2 (0.0-0.8) x10-3/uL Baso # (Auto) 0.1 (0.0-0.1) x10-3/uL PT 10.6 (9.0-11.1) sec INR 0.98 L (1.00-1.24) Sodium 143 (135-145) mmol/L Potassium 3.5 (3.5-5.3) mmol/L Chloride 106 D (100-110) mmol/L Carbon Dioxide 28 (21-32) mmol/L BUN 13 (7-18) mg/dL Creatinine 1.0 (0.55-1.02) mg/dL Est Cr Clr Drug Dosing 34.38 mL/min Estimated GFR (MDRD) 54 L (>60) BUN/Creatinine Ratio 13.0 (9-20) Glucose 98 (80-116) mg/dL Calcium 8.7 (8.6-10.2) mg/dL Troponin I (4.0-60.3) pg/mL Urine Color (YELLOW) Urine Appearance (CLEAR) Urine pH (5.0-6.5) Ur Specific Platina (1.010-1.025) Urine Protein (NEGATIVE) mg/dL Urine Glucose (UA) (NORMAL) mg/dL Urine Ketones (NEGATIVE) mg/dL Urine Occult Blood (NEGATIVE) Urine Nitrite (NEGATIVE) Urine Bilirubin (NEGATIVE) Urine Urobilinogen (NEGATIVE) mg/dL Ur Leukocyte Esterase (NEGATIVE) Urine RBC (0-5) Urine WBC (0-5) Ur Squamous Epith Cells (NS,R,O) Urine Bacteria (NS) SARS-CoV-2 RNA (ASAEL) (NEGATIVE) Med Orders - Current: Current Medications Acetaminophen (Acetaminophen 500 Mg Tab) 500 mg PO Q8H PRN PRN Reason: Pain Alprazolam (Alprazolam 0.5 Mg Tab) 0.5 mg PO DAILY PRN PRN Reason: Anxiety Artificial Tears (Carboxymethylcellulose Sodium 0.5% Ophth Soln 15 Ml Bottle) 0 ml EYEBOTH Q4H PRN PRN Reason: Dry Eyes Ceftriaxone Sodium (Ceftriaxone 1 Gm Vial) 1 gm IVPUSH Q24H [facility] Last Admin: 02/20/21 08:22 Dose: 1 gm Documented by: Enoxaparin Sodium (Enoxaparin 100 Mg/1 Ml Syringe) 100 mg SUBCUT Q12H [facility] Last Admin: 02/20/21 10:37 Dose: 100 mg Documented by: Escitalopram Oxalate (Escitalopram 10 Mg Tab) 10 mg PO DAILY [facility] Last Admin: 02/20/21 08:19 Dose: 10 mg Documented by: Ferrous Sulfate (Ferrous Sulfate 325 Mg Tab) 325 mg PO DAILY [facility] Last Admin: 02/20/21 08:19 Dose: 325 mg Documented by: Hydrochlorothiazide (Hydrochlorothiazide 12.5 Mg Cap) 12.5 mg PO DAILY [facility] Last Admin: 02/20/21 08:20 Dose: 12.5 mg Documented by: Losartan Potassium (Losartan 50 Mg Tab) 50 mg PO DAILY [facility] Last Admin: 02/20/21 08:21 Dose: 50 mg Documented by: Melatonin (Melatonin 3 Mg Tab) 3 mg PO BEDTIME [facility] Last Admin: 02/19/21 21:02 Dose: 3 mg Documented by: Potassium Chloride (Potassium Chloride 10 Meq Tab.Er) 10 meq PO TID [facility] Last Admin: 02/20/21 13:54 Dose: 10 meq Documented by: Sodium Chloride (Sodium Chloride 0.9% 10 Ml Syringe) 10 ml FLUSH ASDIRECTED PRN PRN Reason: Keep Vein Open Warfarin Sodium (Warfarin 5 Mg Tab) 5 mg PO 1600 [facility] Last Admin: 02/20/21 15:42 Dose: 5 mg Documented by: Warfarin Sodium (Warfarin Sliding Scale) 1 each PO DAILY [facility] Discontinued Medications Acetaminophen/Diphenhydramine HCl (Acetaminophen/Diphenhydramine 500-25 Mg Tab) 1 tab PO BEDTIME [facility] Last Admin: 02/19/21 21:02 Dose: 1 tab Documented by: Cephalexin (Cephalexin 500 Mg Cap) 500 mg PO ONETIME ONE Stop: 02/19/21 16:11 Last Admin: 02/19/21 16:17 Dose: 500 mg Documented by: Non-Formulary Medication (Melatonin [Melatonin]) 5 mg PO BEDTIME [facility] - Exam General: Alert, Oriented, Cooperative, No Acute Distress Lungs: Clear to Auscultation, Normal Respiratory Effort Cardiovascular: Regular Rate, Regular Rhythm GI/Abdominal Exam: Normal Bowel Sounds, Soft, Non-Tender, No Distention, Other (Colostomy LUQ) Peripheral Pulses: 2+: Radial (L), Radial (R), Dorsalis Pedis (L), Dorsalis Pedi s (R) Skin: Warm, Dry, Intact - Patient Data Lab Results Last 24 hrs: Laboratory Results - last 24 hr 02/19/21 02/19/21 02/19/21 Range/Units 15:13 15:15 19:40 WBC (3.0-10.3) x10-3/uL RBC (3.60-5.20) x10(6)uL Hgb (11.4-15.5) g/dL Hct (34.2-48.2) % MCV (76.7-100.5) fL MCH (23.9-33.9) pg MCHC (31.9-34.8) g/dL RDW (12.3-16.5) % Plt Count (151-488) x10(3)uL MPV (7.1-12.4) fL Neut % (Auto) (30.8-76.2) % Lymph % (Auto) (18.4-52.1) % Lane % (Auto) (4.4-15.7) % Eos % (Auto) (0.6-8.1) % Baso % (Auto) (0.2-1.5) % Neut # (Auto) (1.5-6.3) x10-3/uL Lymph # (Auto) (1.0-4.4) x10-3/uL Lane # (Auto) (0.3-1.0) x10-3/uL Eos # (Auto) (0.0-0.8) x10-3/uL Baso # (Auto) (0.0-0.1) x10-3/uL PT (9.0-11.1) sec INR (1.00-1.24) Sodium (135-145) mmol/L Potassium (3.5-5.3) mmol/L Chloride (100-110) mmol/L Carbon Dioxide (21-32) mmol/L BUN (7-18) mg/dL Creatinine (0.55-1.02) mg/dL Est Cr Clr Drug Dosing mL/min Estimated GFR (MDRD) (>60) BUN/Creatinine Ratio (9-20) Glucose (80-116) mg/dL Calcium (8.6-10.2) mg/dL Troponin I 6.7 (4.0-60.3) pg/mL Urine Color Yellow (YELLOW) Urine Appearance Slightly cloudy (CLEAR) Urine pH 5.0 (5.0-6.5) Ur Specific Platina 1.010 (1.010-1.025) Urine Protein Negative (NEGATIVE) mg/dL Urine Glucose (UA) Normal (NORMAL) mg/dL Urine Ketones Negative (NEGATIVE) mg/dL Urine Occult Blood Negative (NEGATIVE) Urine Nitrite Negative (NEGATIVE) Urine Bilirubin Negative (NEGATIVE) Urine Urobilinogen Normal (NEGATIVE) mg/dL Ur Leukocyte Esterase Large H (NEGATIVE) Urine RBC 0-5 (0-5) Urine WBC >100 H (0-5) Ur Squamous Epith Cells Few H (NS,R,O) Urine Bacteria Many H (NS) SARS-CoV-2 RNA (ASAEL) Negative (NEGATIVE) 02/20/21 02/20/21 02/20/21 Range/Units 06:28 06:28 06:28 WBC 6.0 (3.0-10.3) x10-3/uL RBC 3.85 (3.60-5.20) x10(6)uL Hgb 9.8 L (11.4-15.5) g/dL Hct 31.0 L (34.2-48.2) % MCV 80.5 (76.7-100.5) fL MCH 25.5 (23.9-33.9) pg MCHC 31.7 L (31.9-34.8) g/dL RDW 15.5 (12.3-16.5) % Plt Count 297 (151-488) x10(3)uL MPV 6.7 L (7.1-12.4) fL Neut % (Auto) 55.3 (30.8-76.2) % Lymph % (Auto) 31.5 (18.4-52.1) % Lane % (Auto) 9.5 (4.4-15.7) % Eos % (Auto) 2.6 (0.6-8.1) % Baso % (Auto) 1.1 (0.2-1.5) % Neut # (Auto) 3.3 (1.5-6.3) x10-3/uL Lymph # (Auto) 1.9 (1.0-4.4) x10-3/uL Lane # (Auto) 0.6 (0.3-1.0) x10-3/uL Eos # (Auto) 0.2 (0.0-0.8) x10-3/uL Baso # (Auto) 0.1 (0.0-0.1) x10-3/uL PT 10.6 (9.0-11.1) sec INR 0.98 L (1.00-1.24) Sodium 143 (135-145) mmol/L Potassium 3.5 (3.5-5.3) mmol/L Chloride 106 D (100-110) mmol/L Carbon Dioxide 28 (21-32) mmol/L BUN 13 (7-18) mg/dL Creatinine 1.0 (0.55-1.02) mg/dL Est Cr Clr Drug Dosing 34.38 mL/min Estimated GFR (MDRD) 54 L (>60) BUN/Creatinine Ratio 13.0 (9-20) Glucose 98 (80-116) mg/dL Calcium 8.7 (8.6-10.2) mg/dL Troponin I (4.0-60.3) pg/mL Urine Color (YELLOW) Urine Appearance (CLEAR) Urine pH (5.0-6.5) Ur Specific Platina (1.010-1.025) Urine Protein (NEGATIVE) mg/dL Urine Glucose (UA) (NORMAL) mg/dL Urine Ketones (NEGATIVE) mg/dL Urine Occult Blood (NEGATIVE) Urine Nitrite (NEGATIVE) Urine Bilirubin (NEGATIVE) Urine Urobilinogen (NEGATIVE) mg/dL Ur Leukocyte Esterase (NEGATIVE) Urine RBC (0-5) Urine WBC (0-5) Ur Squamous Epith Cells (NS,R,O) Urine Bacteria (NS) SARS-CoV-2 RNA (ASAEL) (NEGATIVE) Result Diagrams: 02/20/21 06:28 02/20/21 06:28 Sepsis Event Note - Evaluation Sepsis Screening Result: No Definite Risk - Focused Exam Vital Signs: Vital Signs Temp Pulse Resp BP BP Pulse Ox 02/20/21 12:39 98.8 F 76 18 112/47 L 91 L 02/20/21 08:21 132/66 02/20/21 08:00 97.6 F 66 18 132/66 94 L - Problem List & Annotations (1) Cystitis SNOMED Code(s): 31441788 Code(s): N30.90 - CYSTITIS, UNSPECIFIED WITHOUT HEMATURIA Status: Acute Current Visit: Yes (2) Frequent falls SNOMED Code(s): 827419658 Code(s): R29.6 - REPEATED FALLS Status: Acute Current Visit: Yes (3) Diverticulosis of colon SNOMED Code(s): 131518785 Code(s): K57.30 - DVRTCLOS OF LG INT W/O PERFORATION OR ABSCESS W/O BLEEDING Status: Chronic Current Visit: No Qualifiers: Diverticulosis bleeding: diverticulosis without bleeding Qualified Code(s): K57.30 - Diverticulosis of large intestine without perforation or abscess without bleeding Annotation/Comment:: s/p Colostomy (4) Hiatal hernia with GERD and esophagitis SNOMED Code(s): 730520293 Code(s): K44.9 - DIAPHRAGMATIC HERNIA WITHOUT OBSTRUCTION OR GANGRENE; K21.0 - GASTRO-ESOPHAGEAL REFLUX DISEASE WITH ESOPHAG * DO NOT USE * Status: Chronic Current Visit: No (5) Internal hemorrhoids SNOMED Code(s): 38193635 Code(s): K64.8 - OTHER HEMORRHOIDS Status: Chronic Current Visit: No (6) Recurrent pulmonary embolism SNOMED Code(s): 207863548 Code(s): I26.99 - OTHER PULMONARY EMBOLISM WITHOUT ACUTE COR PULMONALE Status: Chronic Current Visit: No (7) Subtherapeutic international normalized ratio (INR) SNOMED Code(s): 027800419, 374239394 Code(s): R79.1 - ABNORMAL COAGULATION PROFILE Status: Acute Current Visit: No (8) Adverse drug event SNOMED Code(s): 35932161 Code(s): T88.7XXA - UNSP ADVERSE EFFECT OF DRUG OR MEDICAMENT, INIT ENCNTR Status: Acute Current Visit: Yes Annotation/Comment:: Xanax was in her coumadin bottle so thought she was taking her coumadin. Would explain why her INR is not therapeutic. Will bridge with Lovenox until she get in goal range. - Problem List Review Problem List Initiated/Reviewed/Updated: Yes - My Orders Last 24 Hours: My Active Orders 02/19/21 Dinner Regular Diet [DIET] 02/19/21 17:09 Patient Status [ADT] Routine Oxygen Therapy [RC] .PRN Up With Assistance [RC] .PRN Up ad Rosy [RC] .PRN Vital Signs [RC] 00,04,08,12,16,20 OT Evaluation and Treatment [CONS] Routine PT Evaluation and Treatment [CONS] Routine Sodium Chloride 0.9% [Saline Flush] 10 ml FLUSH ASDIRECTED PRN Saline Lock Insert [OM.PC] Routine 02/19/21 17:10 Antiembolic Hose [OM.PC] Per Unit Routine 02/19/21 17:12 ALPRAZolam [Xanax] 0.5 mg PO DAILY PRN Acetaminophen [Tylenol Extra Strength] 500 mg PO Q8H PRN Carboxymethylcellulose Sodium [Refresh Tears 0.5%] 0 ml EYEBOTH Q4H PRN 02/19/21 17:40 Resuscitation Status Routine 02/19/21 21:00 Melatonin 3 mg PO BEDTIME Potassium Chloride [Klor-Con 10] 10 meq PO TID 02/20/21 09:00 Escitalopram [Lexapro] 10 mg PO DAILY Ferrous Sulfate 325 mg PO DAILY Losartan [Cozaar] 50 mg PO DAILY Warfarin Sliding Scale [Coumadin Sliding Scale] 1 each PO DAILY cefTRIAXone [Rocephin] 1 gm IVPUSH Q24H hydroCHLOROthiazide 12.5 mg PO DAILY 02/20/21 10:00 Enoxaparin [Lovenox] 100 mg SUBCUT Q12H 02/20/21 16:00 Warfarin [Coumadin] 5 mg PO 1600 02/21/21 06:00 INR,PT,PROTHROMBIN TIME [COAG] DAILY 02/22/21 06:00 INR,PT,PROTHROMBIN TIME [COAG] DAILY 02/23/21 06:00 INR,PT,PROTHROMBIN TIME [COAG] DAILY 02/24/21 06:00 INR,PT,PROTHROMBIN TIME [COAG] DAILY 02/25/21 06:00 INR,PT,PROTHROMBIN TIME [COAG] DAILY - Plan Plan:: 1. UTIs: Rocephin 1 g IV q24h. UC pending. adjust treatments once culture back. Repeat BMP in am. 2. Recurrent PEs: Bridge with Lovenox since she likely has been subtherapeutic for 2 weeks, thought she was taking Coumadin and it was Xanax that was in her Coumadin bottle. Pharmacy has contacted the dispensing pharmacy. Coumadin per pharmacy dosing. 3. Recurrent falls: Consult PT/OT. Negative CT head. Had Xanax in her bottle labeled Coumadin, would account for some of her falls. PT/OT evaluated and stated she was quite unsteady and they would pick her up. 4. Discharge planning: anticipate 48-72 hours of antibiotics and PT/OT, discharge planning to arrange for placement.
[2021-02-20] MEDS: Melatonin 3 MG Tab PO SCH (20:59)
[2021-02-21] MEDS: Losartan 50 MG Tab PO SCH (09:07)
[2021-02-21] MEDS: Potassium Chloride 10 MEQ Tab.ER PO SCH ×3 (09:08→21:12)
[2021-02-21] MEDS: Ferrous Sulfate 325 MG Tab PO SCH (09:08)
[2021-02-21] MEDS: Hydrochlorothiazide 12.5 MG Cap PO SCH (09:09)
[2021-02-21] MEDS: Escitalopram 10 MG Tab PO SCH (09:09)
[2021-02-21] MEDS: Enoxaparin 100 MG/1 ML Syringe SUBCUT SCH ×2 (09:10→21:11)
[2021-02-21] MEDS: cefTRIAXone 1 GM Vial IVPUSH SCH (09:10)
[2021-02-21] MEDS: Sodium Chloride 0.9% 10 ML Syringe FLUSH PRN ×2 (09:16→22:45)
--- NOTE | 2021-02-21 12:34 | PN ---
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 This was done for bowel obstruction discovered during workup for abdominal pain. Clinic notes do not specify what the pathology was, but she had a colostomy placed on 10/23/2020 and subsequently, 11/17/2020, she was seen in the emergency room for recurrent abdominal pain and she was found to have an abdominal abscess that was drained. Subsequent to that, she has been doing well. She is on long-term warfarin for recurrent PE and when she last got her alprazolam or her Xanax tablets refilled which she normally takes 1 at bedtime, they were a different color and she mistook them for warfarin and so she was not taking any warfarin. Her INR kept going down and the INR Clinic kept increasing her pills until she took 4 of the blue pills which turned out to be Xanax. She had progressive weakness, loss of mobility, and multiple falls, eventually landing her in the emergency room at [place] on 02/19 for which she was admitted. She was found to have a low INR of 1.0 and symptoms consistent with benzodiazepine overdose. Her Xanax has been held and she is back on the warfarin. She is being bridged with Lovenox because of her previous recurrent PEs. She is examined in her bed today. She is alert, oriented. She is a good historian and is comfortable. PHYSICAL EXAMINATION: VITAL SIGNS: Blood pressure 137/60, pulse 78 and regular, respirations normal, O2 saturation 94% on room air, temperature 98.6, weight 225 pounds 9 ounces. SKIN: Anicteric. Warm and dry without rash. MOUTH: Dry. LUNGS: Clear to the bases. HEART: Regular without murmur or gallop. ABDOMEN: Obese. Normal bowel sounds. Soft. She has a clean colostomy bag in place. No tenderness. EXTREMITIES: Show no edema at the ankles. NEUROLOGIC: Revealed her motor exam to be symmetric. She was up walking in the room. ASSESSMENT: 1. Multiple falls secondary to inadvertent benzodiazepine overdose. 2. History of recurrent pulmonary embolisms, on warfarin, with absence of medication the past several days, now being resumed. 3. Colostomy for large bowel obstruction. 4. Anemia with hemoglobin 9.8. This was 14 before all of her medical problems began. 5. Chronic essential hypertension. 6. Anxiety. PLAN: We will discontinue alprazolam. Continue her Lovenox until her INR becomes therapeutic. Increase her mobility with physical therapy. She has been changed from a 4-wheeled walker to a 2-wheeled walker because of unsteadiness. We will continue to monitor this. If continues to improve, plan a discharge in 24 to 48 hours back to her home with the [facility]. /[id number] ALICE/LILLY
--- NOTE | 2021-02-21 13:05 | PN ---
DATE SEEN: 02/21/2021 ADDENDUM: DIAGNOSIS: Urinary tract infection. PLAN: Continue the Rocephin for her UTI. /[id number] ALICE/LILLY
[2021-02-21] MEDS: Warfarin 5 MG Tab PO SCH (15:22)
[2021-02-21] MEDS: Melatonin 3 MG Tab PO SCH (21:12)
--- NOTE | 2021-02-21 21:55 | PCM.SN.2 ---
- Free Text/Narrative Note: Nursing staff presented me with sensitivities from the patient's urine culture which showed that ceftriaxone is only inhibitory to the organism in the urine, Klebsiella oxytoca. The organism is sensitive to Zosyn. The nursing staff has told me that the patient is doing well but still somewhat weak. Review of the patient's record shows that she is not allergic to penicillins. Therefore, I will place the patient on Zosyn 3.375 g IV every 6 hours.
[2021-02-21] MEDS: Saccharomyces Boulardii (Probiotic) 250 MG Cap PO SCH (22:07)
[2021-02-21] MEDS: Piperacillin/Tazobactam 3.375 GM in Sodium Chloride 0.9% 50 ML IV SCH (22:07)
[2021-02-22] MEDS: Piperacillin/Tazobactam 3.375 GM in Sodium Chloride 0.9% 50 ML IV SCH ×2 (04:51→09:23)
[2021-02-22] MEDS: Sodium Chloride 0.9% 10 ML Syringe FLUSH PRN (05:20)
[2021-02-22 08:48] VITALS: BP 131/73; PULSE 74
[2021-02-22] MEDS: Potassium Chloride 10 MEQ Tab.ER PO SCH (08:50)
[2021-02-22] MEDS: Ferrous Sulfate 325 MG Tab PO SCH (08:51)
[2021-02-22] MEDS: Losartan 50 MG Tab PO SCH (08:52)
[2021-02-22] MEDS: Escitalopram 10 MG Tab PO SCH (08:52)
[2021-02-22] MEDS: Hydrochlorothiazide 12.5 MG Cap PO SCH (08:52)
[2021-02-22] MEDS: Saccharomyces Boulardii (Probiotic) 250 MG Cap PO SCH (08:55)
[2021-02-22] MEDS: Enoxaparin 100 MG/1 ML Syringe SUBCUT SCH (09:01)
[2021-02-22] MEDS ORDERED: Sulfamethoxazole/Trimethoprim 400-80 MG Tab PO SCH (09:30)
--- NOTE | 2021-02-22 10:27 | DISCH ---
DISCHARGE DATE: 02/22/2021 PRIMARY FINAL DIAGNOSES: Adverse medication reaction, subtherapeutic INR, urinary tract infection, history of recurrent pulmonary embolisms, hypertension. OPERATIONS: None. COMPLICATIONS: None. SUMMARY: Jeanette is a 75-year-old woman who has been on long-term warfarin for recurrent PEs. Last prescription, her warfarin pills had apparently changed color and she ended up taking increasing doses of lorazepam, thinking it was her warfarin, so her INR dropped to subtherapeutic and she became weak, dizzy, had multiple falls, and was admitted. The discovery was made. Her alprazolam was stopped. She was restarted on warfarin supplemented by Lovenox. She was found to have a urinary tract infection. She steadily improved, and by 02/22/2021, she was strong enough for discharge. She still was subtherapeutic on her INR. MEDICATIONS ON DISCHARGE: 1. Tylenol p.r.n. 2. Artificial Tears p.r.n. 3. Lovenox 100 mg b.i.d., 4 doses sent with a refill to use until her INR comes up to the 2 to 3 range. 4. Lexapro 10 mg daily. 5. Iron sulfate 325 mg daily. 6. Losartan/HCT 50/12.5 one daily. 7. Melatonin 5 mg at bedtime. 8. Potassium chloride 10 mEq t.i.d. 9. Bactrim DS 1 b.i.d. x5 days. 10.Warfarin 2.5 mg daily adjusted by INR Clinic. She is to report her INR findings to the INR Clinic as she has been doing in the past and follow up with her regular doctor on a p.r.n. basis. /[id number] ALICE/LILLY
[2021-02-22] MEDS ORDERED: Warfarin 2.5 MG Tab PO ONE (16:00)
[2021-02-23] MEDS ORDERED: Warfarin 5 MG Tab PO SCH (16:00)
[2021-02-23] MEDS ORDERED: Warfarin 2.5 MG Tab PO SCH (16:00)
[2021-02-25 08:11] LABS: IRON BIND.CAP.(TIBC) 303 ug/dL (250-450); IRON SATURATION 8 % (15-55); IRON, SERUM 24 ug/dL (27-139); UIBC 279 ug/dL (118-369)
== END 2021-02-22 12:35 | disposition home or self-care (01) | DRG 918 ==
LOC: FB.ED 14:22 → FB.MS 16:41
PROVIDERS: ADMIT Family Medicine; ATTEND Family Medicine
DX: N30.90 Cystitis, unspecified without hematuria (principal); R29.6 Repeated falls; T42.4X1A Poisoning by benzodiazepines, accidental (unintentional), initial encounter; N30.00 Acute cystitis without hematuria; Z68.41 Body mass index [BMI] 40.0-44.9, adult; I27.82 Chronic pulmonary embolism; H54.7 Unspecified visual loss; I10 Essential (primary) hypertension; M19.90 Unspecified osteoarthritis, unspecified site; F41.9 Anxiety disorder, unspecified; Z66 Do not resuscitate; D64.9 Anemia, unspecified; Z20.822 Contact with and (suspected) exposure to COVID-19; F32.9 Major depressive disorder, single episode, unspecified; E66.9 Obesity, unspecified; G47.30 Sleep apnea, unspecified; K57.30 Diverticulosis of large intestine without perforation or abscess without bleeding; K21.00 Gastro-esophageal reflux disease with esophagitis, without bleeding; K64.8 Other hemorrhoids; B96.1 Klebsiella pneumoniae [K. pneumoniae] as the cause of diseases classified elsewhere; Z88.5 Allergy status to narcotic agent; Z79.01 Long term (current) use of anticoagulants; Z79.899 Other long term (current) drug therapy; Z86.718 Personal history of other venous thrombosis and embolism; Z87.440 Personal history of urinary (tract) infections; Z87.442 Personal history of urinary calculi; Z86.010 Personal history of colon polyps; Z88.6 Allergy status to analgesic agent
CPT/HCPCS: 36415; 70450; 80307; 81001; 84484; 87086; 87088; 87186; 99285; A9270; 80048; 82272; 82607; 83540; 83550; 85018; 85025; 85045; 85610; 97110-GP; 97161-GP; 97165-GO; 97530-GP; J0696; J1650; J2543; U0002

== ENCOUNTER 2023-06-25 20:16 | Emergency (ER) | payer MEDICARE, BC ==
[2023-06-25] MEDS ORDERED: Ondansetron 4 MG Tab.DIS PO ONE (20:17)
[2023-06-25] MEDS ORDERED: Acetaminophen/oxyCODONE 325-5 MG Tab PO ONE (20:17)
[2023-06-25] MEDS: HYDROmorphone 2 MG/ML SDV IVPUSH ONE ×2 (20:40→22:54)
[2023-06-25] MEDS: Ondansetron 4 MG/2 ML SDV IVPUSH ONE (21:01)
[2023-06-25] MEDS: Labetalol 20 MG/4 ML Syringe IVPUSH ONE (21:02)
[2023-06-25 21:07] LABS: BASOPHILS PERCENT AUTO 0.3 % (0.2-1.5); EOSINOPHILS PERCENT AUTO 0.2 % (0.6-8.1); HEMATOCRIT 35.9 % (34.2-48.2); HEMOGLOBIN 11.7 g/dL (11.4-15.5); LYMPHOCYTES ABSOLUTE AUTO 1.5 x10-3/uL (1.0-4.4); LYMPHOCYTES PERCENT AUTO 10.4 % (18.4-52.1); MEAN CORPUSCULAR HEMOGLOBIN 28.3 pg (23.9-33.9); MEAN CORPUSCULAR HGB CONC 32.5 g/dL (31.9-34.8); MEAN CORPUSCULAR VOLUME 87.2 fL (76.7-100.5); MEAN PLATELET VOLUME 7.2 fL (7.1-12.4); MONOCYTES ABSOLUTE AUTO 0.6 x10-3/uL (0.3-1.0); MONOCYTES PERCENT AUTO 4.2 % (4.4-15.7); NEUTROPHILS ABSOLUTE AUTO 12.4 x10-3/uL (1.5-6.3); NEUTROPHILS PERCENT AUTO 84.9 % (30.8-76.2); PLATELET COUNT,PLT 327 x10(3)uL (151-488); RED BLOOD CELL COUNT 4.12 x10(6)uL (3.60-5.20); RED CELL DISTRIBUTION WIDTH 14.4 % (12.3-16.5); WHITE BLOOD CELL COUNT,WBC 14.6 x10-3/uL (3.0-10.3)
[2023-06-25 21:20] LABS: BLOOD UREA NITROGEN,BUN 11 mg/dL (7-18); BUN/CREATININE RATIO 12.2 (9-20); CARBON DIOXIDE,CO2 29 mmol/L (21-32); CHLORIDE,CL 102 mmol/L (100-110); CREATININE 0.9 mg/dL (0.55-1.02); ESTIMATED GFR 65 mL/min (>60); GLUCOSE RANDOM 156 mg/dL (80-116); POTASSIUM,K 3.4 mmol/L (3.5-5.3); SODIUM,NA 140 mmol/L (135-145)
[2023-06-25 21:22] LABS: INR 3.33 (1.00-1.24); PROTHROMBIN TIME 33.2 sec (9.0-11.1)
[2023-06-25 21:25] LABS: A/G RATIO 0.8; ALANINE AMINOTRANSFERASE,ALT 21 U/L (12-36); ALBUMIN 3.2 g/dL (3.2-4.6); ALKALINE PHOSPHATASE 101 IU/L (56-112); ASPARTATE AMNIOTRANSFERASE,AST 28 IU/L (5-25); BILIRUBIN TOTAL 0.3 mg/dL (0.1-1.3)
[2023-06-26] MEDS: Ondansetron 4 MG Tab.DIS PO ONE (01:29)
[2023-06-26 01:39] VITALS: BP 144/69; PULSE 71
== END 2023-06-26 01:39 | disposition home or self-care (01) ==
LOC: FB.ED 20:16
DX: S42.212A Unspecified displaced fracture of surgical neck of left humerus, initial encounter for closed fracture (principal); I10 Essential (primary) hypertension; Z79.01 Long term (current) use of anticoagulants; E66.9 Obesity, unspecified; Z68.41 Body mass index [BMI] 40.0-44.9, adult; Z88.5 Allergy status to narcotic agent; W00.0XXA Fall on same level due to ice and snow, initial encounter
CPT/HCPCS: 36415; 73020-LT; 73030-LT; 80053; 85025; 85610; 85730; 96374; 96375; 96376; 99284-25; A9270-GY; J1170; J2405; J3490; Q0162